=== PATIENT | female | born 1950 | race Caucasian/White ===

== ENCOUNTER 2017-05-28 01:23 | Observation (INO) | payer MEDICARE ==
[2017-05-28] MEDS ORDERED: MORPHINE SULFATE 4 MG INJ IV ONE (01:40)
[2017-05-28] MEDS ORDERED: Zofran 4 MG/2 ML VIAL IV ONE (01:40)
[2017-05-28] MEDS ORDERED: Sodium Chloride 0.9% 1000 ML 1,000 ML IV SCH ×2 (01:45→04:41)
--- NOTE | 2017-05-28 01:47 | ERPHSYRPT ---
- History of Present Illness Time Seen by Provider: 05/28/17 01:43 Source: patient Physician History: 66-year-old white female brought by her with complaint that the patient is complaining of headache and he thinks she might of been confused symptoms since just prior to arrival. Past medical history includes atherosclerotic coronary artery disease high blood pressure Patient denies diabetes Past surgical history includes cholecystectomy, Timing/Duration: today (probably him just prior to arrival) Associated Symptoms: nausea, vomiting, headaches, malaise, No shortness of breath, No heartburn, No diaphoresis, No chills, No chest pain, No fever, No loss of appetite, No rash, No syncope, No seizure Allergies/Adverse Reactions: Sulfa (Sulfonamide Antibiotics) Allergy (Verified 05/28/17 01:52) - Review of Systems Constitutional: No Fever, No Chills Eyes: No Symptoms Ears, Nose, & Throat: No Symptoms Cardiac: No Chest Pain, No Edema, No Syncope Abdominal/Gastrointestinal: Nausea, Vomiting, No Abdominal Pain, No Diarrhea, No Constipation, No Hematemesis, No Hematochezia, No Melena, No Dysphagia, No Appetite Changes Genitourinary Symptoms: No Dysuria Musculoskeletal: No Back Pain, No Neck Pain Skin: No Rash Neurological: Headache Psychological: No Symptoms Endocrine: No Symptoms All Other Systems: Reviewed and Negative - Past Medical History Cardiac History: Coronary Artery Disease, Hypertension - Past Surgical History Gastrointestinal: Cholecystectomy - Nursing Vital Signs Nursing Vital Signs: Initial Vital Signs Temperature 97.7 F 05/28/17 01:24 Pulse Rate 75 05/28/17 01:24 Respiratory Rate 22 05/28/17 01:24 Blood Pressure 205/93 05/28/17 01:24 O2 Sat by Pulse Oximetry 97 05/28/17 01:24 Pain Scale Pain Intensity 1 - Physical Exam General Appearance: other (well-developed white female she is alert oriented 3 somewhat slow to answer questions) Eye Exam: PERRL/EOMI, eyes nml inspection Ears, Nose, Throat Exam: normal ENT inspection, TMs normal, pharynx normal, moist mucous membranes Neck Exam: normal inspection, non-tender, supple, full range of motion Respiratory Exam: normal breath sounds, lungs clear, No respiratory distress Cardiovascular Exam: regular rate/rhythm, normal heart sounds, normal peripheral pulses Gastrointestinal/Abdomen Exam: soft, normal bowel sounds, No tenderness, No mass Back Exam: normal inspection, normal range of motion, No CVA tenderness, No vertebral tenderness Extremity Exam: normal inspection, normal range of motion, pelvis stable Neurologic Exam: alert, oriented x 3, gerontological nurse practitioner II-XII nml as tested, other (patient is able to complete finger to nose full range of motion to all extremitiespatient is somewhat slow to answer questions) Skin Exam: normal color, warm, dry, No rash Lymphatic Exam: No adenopathy SpO2 Interpretation: normal (95%Will with him. Follow-up appointment. Him) - Course Nursing assessment & vital signs reviewed: Yes EKG Interpreted by Me: RATE (60 bpm), Sinus Rhythm, Left [place] Deviation, Other ( EKG: Sinus rhythm, 60 bpm, left axis deviation, no acute ST or T wave changes noted) - CT Exams Head CT Interpretation: Tele-radiologist Report (no acute findings) Ordered Tests: Active Orders 24 hr Category Date Time Status Accucheck STAT Care 05/28/17 01:41 Active Sow Farm Technician STAT Care 05/28/17 01:41 Active EKG-ER Only STAT Care 05/28/17 01:42 Active IV Insertion STAT Care 05/28/17 01:40 Active HEAD WITHOUT CONTRAST [CT] Stat Exams 05/28/17 01:41 Taken ACETAMINOPHEN Stat Lab 05/28/17 01:45 Completed AMYLASE Stat Lab 05/28/17 01:45 Completed CBC W DIFF Stat Lab 05/28/17 01:45 Completed CMP Stat Lab 05/28/17 01:45 Completed ETHYL ALCOHOL Stat Lab 05/28/17 01:45 Completed SALICYLATE Stat Lab 05/28/17 01:45 Completed UA W/RFX UR CULTURE Stat Lab 05/28/17 03:00 Completed Urine Triage Profile Stat Lab 05/28/17 03:00 Completed Medication Summary Generic Name Dose Route Start Last Admin Trade Name Freq PRN Reason Stop Dose Admin Sodium Chloride 1,000 mls @ 100 mls/hr 05/28/17 01:45 05/28/17 01:53 Sodium Chloride 0.9% 1000 Ml IV 06/27/17 01:44 100 mls/hr .Q10H RACHELL Administration Discontinued Medications Generic Name Dose Route Start Last Admin Trade Name Freq PRN Reason Stop Dose Admin Morphine Sulfate 4 mg 05/28/17 01:40 05/28/17 01:52 Morphine Sulfate 4 Mg Inj IV 05/28/17 01:41 4 mg STAT ONE Administration Morphine Sulfate Confirm 05/28/17 01:50 Morphine Sulfate 4 Mg Inj Administered 05/28/17 01:51 Dose 4 mg .ROUTE .STK-MED ONE Ondansetron HCl 4 mg 05/28/17 01:40 05/28/17 01:52 Zofran 4 Mg/2 Ml Vial IV 05/28/17 01:41 4 mg STAT ONE Administration Ondansetron HCl Confirm 05/28/17 01:50 Zofran 4 Mg/2 Ml Vial Administered 05/28/17 01:51 Dose 4 mg .ROUTE .STK-MED ONE Promethazine HCl 12.5 mg 05/28/17 02:42 05/28/17 02:49 Phenergan 25 Mg Inj IV 05/28/17 02:43 12.5 mg STAT ONE Administration Promethazine HCl Confirm 05/28/17 02:46 Phenergan 25 Mg Inj Administered 05/28/17 02:47 Dose 25 mg .ROUTE .STK-MED ONE Lab/Rad Data: Laboratory Result Diagrams 05/28/17 01:45 05/28/17 01:45 Laboratory Results 05/28/17 05/28/17 05/28/17 Range/Units 03:00 03:00 01:45 WBC (4.0-10.5) K/mm3 RBC (4.1-5.4) M/mm3 Hgb (12.0-16.0) gm/dl Hct (35-47) % MCV (78-100) fl MCH (26-32) pg MCHC (32-36) g/dl RDW (11.5-14.0) % Plt Count (150-450) K/mm3 MPV (6-9.5) fl Gran % (36.0-66.0) % Eos # (Auto) (0-0.5) Lymphocytes % (24.0-44.0) % Monocytes % (0.0-12.0) % Eosinophils % (0.00-5.0) % Basophils % (0.0-0.4) % Absolute Granulocytes (1.4-6.9) Basophils # (0-0.4) Sodium (137-145) mmol/L Potassium (3.5-5.1) mmol/L Chloride (98-107) mmol/L Carbon Dioxide (22-30) mmol/L Anion Gap (5-15) MEQ/L BUN (7-17) mg/dL Creatinine (0.52-1.04) mg/dL Estimated GFR ML/MIN Glucose (74-106) mg/dL Calcium (8.4-10.2) mg/dL Total Bilirubin (0.2-1.3) mg/dL AST (14-36) U/L ALT (0-35) U/L Alkaline Phosphatase (38-126) U/L Serum Total Protein (6.3-8.2) g/dL Albumin (3.5-5.0) g/dL Amylase 59 (30-110) U/L Ur Collection Type CATH Urine Color YELLOW (YELLOW) Urine Appearance CLEAR (CLEAR) Urine pH 8.0 (5-6) Ur Specific [place] 1.005 (1.005-1.025) Urine Protein NEGATIVE (Negative) Urine Ketones NEGATIVE (NEGATIVE) Urine Blood NEGATIVE (0-5) Vu/ul Urine Nitrite NEGATIVE (NEGATIVE) Urine Bilirubin NEGATIVE (NEGATIVE) Urine Urobilinogen NORMAL (0-1) mg/dL Ur Leukocyte Esterase NEGATIVE (NEGATIVE) Urine Culture Reflexed NO (NO) Urine Glucose NEGATIVE (NEGATIVE) mg/dL Salicylates < 1.0 L (2-20) mg/dL Urine Opiates Level POSITIVE (NEGATIVE) Ur Methadone NEGATIVE (NEGATIVE) Acetaminophen < 10 L (10-30) ug/ml Urine Barbiturates NEGATIVE (NEGATIVE) Ur Phencyclidine (PCP) NEGATIVE (NEGATIVE) Urine Amphetamine NEGATIVE (NEGATIVE) U Benzodiazepine Level NEGATIVE (NEGATIVE) Urine Cocaine NEGATIVE (NEGATIVE) Urine Marijuana (THC) NEGATIVE (NEGATIVE) Ethyl Alcohol < 10 H (0-9) mg/dL Specimen Received 05/28/17 0300 05/28/17 05/28/17 Range/Units 01:45 01:45 WBC 9.4 (4.0-10.5) K/mm3 RBC 4.87 (4.1-5.4) M/mm3 Hgb 13.8 (12.0-16.0) gm/dl Hct 42.0 (35-47) % MCV 86.2 (78-100) fl MCH 28.3 (26-32) pg MCHC 32.9 (32-36) g/dl RDW 14.6 H (11.5-14.0) % Plt Count 281 (150-450) K/mm3 MPV 9.4 (6-9.5) fl Gran % 58.8 (36.0-66.0) % Eos # (Auto) 0.54 H (0-0.5) Lymphocytes % 25.8 (24.0-44.0) % Monocytes % 9.4 (0.0-12.0) % Eosinophils % 5.7 H (0.00-5.0) % Basophils % 0.3 (0.0-0.4) % Absolute Granulocytes 5.53 (1.4-6.9) Basophils # 0.03 (0-0.4) Sodium 141 (137-145) mmol/L Potassium 3.6 (3.5-5.1) mmol/L Chloride 103 (98-107) mmol/L Carbon Dioxide 29 (22-30) mmol/L Anion Gap 13.1 (5-15) MEQ/L BUN 10 (7-17) mg/dL Creatinine 0.65 (0.52-1.04) mg/dL Estimated GFR > 60 ML/MIN Glucose 117 H (74-106) mg/dL Calcium 9.4 (8.4-10.2) mg/dL Total Bilirubin 0.80 (0.2-1.3) mg/dL AST 18 (14-36) U/L ALT 20 (0-35) U/L Alkaline Phosphatase 121 (38-126) U/L Serum Total Protein 7.0 (6.3-8.2) g/dL Albumin 3.9 (3.5-5.0) g/dL Amylase (30-110) U/L Ur Collection Type Urine Color (YELLOW) Urine Appearance (CLEAR) Urine pH (5-6) Ur Specific [place] (1.005-1.025) Urine Protein (Negative) Urine Ketones (NEGATIVE) Urine Blood (0-5) Vu/ul Urine Nitrite (NEGATIVE) Urine Bilirubin (NEGATIVE) Urine Urobilinogen (0-1) mg/dL Ur Leukocyte Esterase (NEGATIVE) Urine Culture Reflexed (NO) Urine Glucose (NEGATIVE) mg/dL Salicylates (2-20) mg/dL Urine Opiates Level (NEGATIVE) Ur Methadone (NEGATIVE) Acetaminophen (10-30) ug/ml Urine Barbiturates (NEGATIVE) Ur Phencyclidine (PCP) (NEGATIVE) Urine Amphetamine (NEGATIVE) U Benzodiazepine Level (NEGATIVE) Urine Cocaine (NEGATIVE) Urine Marijuana (THC) (NEGATIVE) Ethyl Alcohol (0-9) mg/dL Specimen Received - Progress Progress: improved Progress Note: 05/28/17 04:00 66-year-old white female brought by her with complaint of headache vomiting he felt like she was confused This was a sudden onset just prior to arrival on arrival patient was alert oriented. Had normal CT of the head she was noted to have elevated blood pressure. She was noted to have vomiting and nausea. 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 again was normal, EKG remarkable for sinus rhythm 66 bpm left axis deviation no acute ST or T wave changes were noted chemistry was essentially normal with the exception of a glucose of 117 CBC normal white count of 9.5 hemoglobin 13.8 hematocrit 42 platelets 281 patient's urine drug screen was remarkable for opiates patient with a normal urine Patient was given morphine 4 mg IV also given Zofran 4 mg IV and started on normal saline 100 mL per hour shortly thereafter she a began to have increasing retching, she stated that she was having vertigo. The patient's blood pressure actually had improved. Patient was given Phenergan 12.5 mg IV. She is rechecked she states she still has some dizziness her headache is improved and she is no longer vomiting. 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 I've discussed the case with Dr. Rincon will give patient aspirin 162 mg orally. Will plan to place on observation diagnosis headache, vomiting, vertigo,. Will continue IV normal saline continue morphine as needed for headache and continue Zofran. - Departure Time of Disposition: 03:59 Departure Disposition: Observation Clinical Impression: Vertigo Headache Qualifiers: Headache type: unspecified Headache chronicity pattern: acute headache Intractability: not intractable Qualified Code(s): R51 - Headache Vomiting Qualifiers: Vomiting type: unspecified Vomiting Intractability: non-intractable Nausea presence: with nausea Qualified Code(s): R11.2 - Nausea with vomiting, unspecified Condition: Fair Critical Care Time: No Referrals: ANALIA MONREAL [Primary Care Provider] -
[2017-05-28 01:49] LABS: BASOPHIL % 0.3 % (0.0-0.4); Basophil (Absolute #) 0.03 (0-0.4); Eosinophil % 5.7 % (0.00-5.0); Eosinophil (Absolute #) 0.54 (0-0.5); Granulocyte Absolute (ANC) 5.53 (1.4-6.9); Granulocytes % 58.8 % (36.0-66.0); Hemoglobin 13.8 gm/dl (12.0-16.0); Lymphocyte (Absolute #) 2.43 (1.0-4.6); Lymphocytes % 25.8 % (24.0-44.0); Mean Cell Volume 86.2 fl (78-100); Mean Corpuscular Hemoglobin 28.3 pg (26-32); Mean Corpuscular Hgb Concent. 32.9 g/dl (32-36); Mean Platelet Volume 9.4 fl (6-9.5); Monocyte (Absolute #) 0.88 (0.0-1.3); Monocytes % 9.4 % (0.0-12.0); Platelet Count 281 K/mm3 (150-450); Red Blood Count 4.87 M/mm3 (4.1-5.4); Red Cell Distribution Width 14.6 % (11.5-14.0); White Blood Count 9.4 K/mm3 (4.0-10.5)
[2017-05-28] MEDS ORDERED: Sodium Chloride 0.9% 1000 ML 1,000 ML ONE (01:50)
[2017-05-28] MEDS ORDERED: MORPHINE SULFATE 4 MG INJ ONE (01:50)
[2017-05-28] MEDS ORDERED: Zofran 4 MG/2 ML VIAL ONE (01:50)
[2017-05-28 02:05] LABS: ALBUMIN 3.9 g/dL (3.5-5.0); ALKALINE PHOSPHATASE 121 U/L (38-126); ANION GAP 13.1 MEQ/L (5-15); BLOOD UREA NITROGEN 10 mg/dL (7-17); CHLORIDE 103 mmol/L (98-107); Calcium 9.4 mg/dL (8.4-10.2); Carbon Dioxide 29 mmol/L (22-30); Creatinine 1 0.65 mg/dL (0.52-1.04); Glucose 117 mg/dL (74-106); Potassium 3.6 mmol/L (3.5-5.1); SGOT/AST 18 U/L (14-36); SGPT/ALT 20 U/L (0-35); SODIUM 141 mmol/L (137-145)
[2017-05-28 02:06] LABS: AMYLASE 59 U/L (30-110)
[2017-05-28 02:09] LABS: ACETAMINOPHEN < 10 ug/ml (10-30); ETHYL ALCOHOL < 10 mg/dL (0-9); SALICYLATE < 1.0 mg/dL (2-20)
[2017-05-28] MEDS ORDERED: Phenergan 25 MG INJ IV ONE (02:42)
[2017-05-28] MEDS ORDERED: Phenergan 25 MG INJ ONE (02:46)
[2017-05-28 03:33] LABS: Appearance CLEAR (CLEAR); Bilirubin NEGATIVE (NEGATIVE); Blood NEGATIVE Ery/ul (0-5); Glucose NEGATIVE (NEGATIVE); Ketones NEGATIVE (NEGATIVE); Leukocyte Esterase NEGATIVE (NEGATIVE); Nitrite NEGATIVE (NEGATIVE); Protein,Urine Dip NEGATIVE (Negative); Specific Gravity 1.005 (1.005-1.025); Urobilinogen NORMAL mg/dL (0-1)
[2017-05-28 03:49] LABS: Amphetamine,Urine NEGATIVE (NEGATIVE); Barbiturate,Urine NEGATIVE (NEGATIVE); Benzodiazepine,Urine NEGATIVE (NEGATIVE); Cocaine,Urine NEGATIVE (NEGATIVE); Methadone,Urine NEGATIVE (NEGATIVE); Opiate,Urine POSITIVE (NEGATIVE); PCP,Urine NEGATIVE (NEGATIVE); THC,Urine NEGATIVE (NEGATIVE)
[2017-05-28] MEDS ORDERED: BABY ASPIRIN 81 MG CHEW PO ONE (04:00)
[2017-05-28] MEDS ORDERED: BABY ASPIRIN 81 MG CHEW ONE (04:10)
[2017-05-28] MEDS ORDERED: MORPHINE SULFATE 4 MG INJ IV PRN (04:41)
[2017-05-28] MEDS ORDERED: Zofran 4 MG/2 ML VIAL IV PRN (04:41)
[2017-05-28] MEDS ORDERED: LIPITOR 40MG PO ONE (07:25)
--- NOTE | 2017-05-28 07:32 | PCM.HP ---
History of Present Illness - Chief Complaint Chief Complaint: dysarthria, headache, vomiting, vertigo Date: 05/28/17 History of Present Illness: is a 66 year old female. who was feeling herself yesterday until eating dinner around 6pm she believes she developed a headache on the left side and was having trouble getting the words she wanted to say out. The speech was reported as slurred as well and she was very dizzy needing assistance to walk from her . SHe did not notice any other focal deficits no blurry vision. No previous stroke. She does have a history of migraines but none in recent years and nothing this series. - Review of Systems Constitutional: No Fever, No Chills Eyes: No Symptoms Ears, Nose, & Throat: No Symptoms Respiratory: No Cough, No Short Of Breath Cardiac: No Chest Pain, No Edema, No Syncope Abdominal/Gastrointestinal: Nausea, No Abdominal Pain, No Vomiting, No Diarrhea Genitourinary Symptoms: No Dysuria Musculoskeletal: No Back Pain, No Neck Pain Skin: No Rash Neurological: Dizziness, Gait Changes, Headache, No Focal Weakness, No Sensory Changes Psychological: No Symptoms Endocrine: No Symptoms Hematologic/Lymphatic: No Symptoms Immunological/Allergic: No Symptoms Medications & Allergies Allergies/Adverse Reactions: Allergies Allergy/AdvReac Type Severity Reaction Status Date / Time Sulfa (Sulfonamide Allergy Verified 05/28/17 01:52 Antibiotics) - Past Medical History Past Medical History: Yes Neurological History: No Pertinent History, Migraines ENT History: No Pertinent History Cardiac History: Coronary Artery Disease, Hypertension Respiratory History: No Pertinent History Endocrine Medical History: No Pertinent History Musculoskelatal History: No Pertinent History GI Medical History: No Pertinent History History: No Pertinent History Pyscho-Social History: No Pertinent History Reproductive Disorders: No Pertinent History Comment: poor historian - Female History Are you now?: No - Past Surgical History Past Surgical History: Yes Neuro Surgical History: No Pertinent History Cardiac History: Cardiac Catheterization, Cardiac Stent Respiratory Surgery: No Pertinent History GI Surgical History: Cholecystectomy Genitourinary Surgical Hx: No Pertinent History Musculskeletal Surgical Hx: No Pertinent History Female Surgical History: Hysterectomy Other Surgical History: slow to wake from anesthesia - Social History Smoking Status: Never smoker Exposure to second hand smoke: Yes Alcohol: None Drug Use: none - Physical Exam Vital Signs: Vital Signs - 24 hr Temp Pulse Resp BP Pulse Ox 05/28/17 05:03 98 F 62 18 151/65 99 05/28/17 04:41 99 05/28/17 03:40 59 L 14 180/73 100 05/28/17 02:57 60 18 176/81 94 L 05/28/17 02:43 90 20 185/107 98 05/28/17 01:24 97.7 F 75 22 205/93 97 Oxygen-Last 24 hours O2 Percentage 2 Liters = 28% General Appearance: no apparent distress, alert Neurologic Exam: alert, oriented x 3, cooperative, normal mood/affect, sensation nml, dysarthria (irma), other (very mild dysarthria her expressive aphasia appears improved she is fully oriented with visual ross intact to confrontation. EMOI, PERRL, fundi poorly visualized, CN II-XII intact, finger to nose very slow on the left heal to arredondo discoordinated on the left more then the right. Strength 5/5 throughout no pronator drift. MSR 2+ throughout no clonus, toes downgoing.), No motor deficits, No sensory deficit Eye Exam: PERRL/EOMI, eyes nml inspection, No scleral icterus, No pale conjunctivae Ears, Nose, Throat Exam: normal ENT inspection, pharynx normal, moist mucous membranes, No TMs normal (Left tm dull in neutral position right ok some tendenress alont the left scm) Neck Exam: normal inspection, non-tender, supple, full range of motion Respiratory Exam: normal breath sounds, lungs clear, No respiratory distress Cardiovascular Exam: regular rate/rhythm, normal heart sounds, normal peripheral pulses Gastrointestinal/Abdomen Exam: soft, normal bowel sounds, No tenderness, No mass Back Exam: normal inspection, normal range of motion, No CVA tenderness, No vertebral tenderness Extremity Exam: normal inspection, normal range of motion, pelvis stable Skin Exam: normal color, warm, dry, No rash Lymphatic Exam: No adenopathy Results - Radiology Impressions Radiology Exams & Impressions: Radiology Procedures Category Date Time Status CAROTID BILATERAL [US] Routine Exams 05/28/17 Ordered ECHO W/2D AND DOPPLER [US] Routine Exams 05/28/17 Ordered MRI BRAIN W/O CONTRAST [MRI] Routine Exams 05/28/17 07:21 Ordered Assessment/Plan (1) Dysarthria Current Visit: Yes Status: Acute Assessment & Plan: suspect tia vs stroke with the bp elevation, sudden onset symptoms, outside of treatment window for tpa and rapidly improving symptoms she is improvign with the nasuea from phenergan she received asa in ed will continue asa and give atorvastin check mri brain as well as carotids echo and telemetry allow for permissive htn for now differential to include early mastoid disease on the left wit her hx of sinusitis, benign vertigo, and vestibular migraine. Code(s): R47.1 - DYSARTHRIA AND ANARTHRIA (2) Aphasia Current Visit: Yes Status: Resolved Code(s): R47.01 - APHASIA (3) Headache Current Visit: Yes Status: Acute Qualifiers: Headache type: unspecified Headache chronicity pattern: acute headache Intractability: not intractable Qualified Code(s): R51 - Headache Code(s): R51 - HEADACHE (4) Vertigo Current Visit: Yes Status: Acute Code(s): R42 - DIZZINESS AND GIDDINESS (5) Essential hypertension Current Visit: Yes Status: Acute Code(s): I10 - ESSENTIAL (PRIMARY) HYPERTENSION (6) GERD (gastroesophageal reflux disease) Current Visit: Yes Status: Acute Code(s): K21.9 - GASTRO-ESOPHAGEAL REFLUX DISEASE WITHOUT ESOPHAGITIS (7) Coronary arteriosclerosis Current Visit: Yes Status: Acute
--- NOTE | 2017-05-28 09:20 | XRAY ---
Indication: Slurred speech and chest discomfort. 2-dimensional sonogram and color Doppler imaging of the carotid arteries of the neck performed. Comparison: None Examination of the right carotid circulation demonstrates very minimal eccentric calcified plaquing at the level of the bulb. No critical stenosis or obstruction. Mid to distal internal carotid artery tortuous. PSV of the CCA is 92 cm/s. PSV of the ICA is 82 cm/s. ICA/CCA is ratio 0.9. Normal antegrade vertebral artery flow. Examination of the left carotid circulation negative for focal arteriosclerotic plaquing, critical stenosis, or obstruction. Distal internal carotid artery slightly tortuous. PSV of the CCA is 103 cm/s. PSV of the ICA is 103 cm/s. ICA/CCA ratio is 1.0. Normal antegrade vertebral artery flow. Impression: Very minimal right carotid bulb plaquing and widely patent left carotid circulation. Velocity measurements and ratios are negative for hemodynamically significant flow-limiting stenosis.
--- NOTE | 2017-05-28 09:43 | XRAY ---
Indication: Headache and hypertension. Multiple contiguous axial images obtained through the head without contrast. Comparison: None Ventriculosulcal pattern appears symmetric. Minimal periventricular patchy hypoattenuations favoring degenerative micro-ischemia. No acute intracranial hemorrhage, abnormal extra-axial fluid collection, or mass effect. Fourth ventricle is midline without hydrocephalus. Miles-white matter differentiation preserved. Bony calvarium intact. Visualized paranasal sinuses and mastoid air cells are clear. Impression: Minimal degenerative micro-ischemia. No acute intracranial abnormalities. Comment: Preliminary interpretation was made by [facility]. No discrepancy. CTDI 68.51
[2017-05-28] MEDS ORDERED: ECOTRIN 81 MG PO SCH (10:00)
[2017-05-28] MEDS ORDERED: ENOXAPARIN SODIUM SQ SCH (10:00)
--- NOTE | 2017-05-28 10:04 | XRAY ---
Indication: Severe left temporal pain. Dizziness, slurred speech, confusion, and bilateral arm weakness. Sagittal, coronal, and axial MRI brain was performed without contrast using T1, T2, FLAIR, diffusion, and ADC sequences. Comparison: None Age-appropriate global atrophy. Several T2 signal intensities seen in the periventricular white matter and lesser degree brainstem favoring degenerative micro-ischemia. No acute intracranial hemorrhage, abnormal extra-axial fluid collection, or mass effect. Diffusion images are negative for restricted signal. Fourth ventricle is midline without hydrocephalus. 7/8 cranial nerve complex bilaterally symmetric. Normal flow void signal within the major intracerebral circulation. Normal-appearing craniocervical junction and sella turcica. Paranasal sinuses are clear. Mild fluid signal in the right mastoid air cells. Impression: 1. Normal aging brain including atrophy and degenerative micro-ischemia as detailed. 2. No acute intracranial abnormalities or evidence for evolving large vessel territorial stroke. 3. Incidental right mastoid air cell fluid signal presumed inflammatory.
[2017-05-28] MEDS ORDERED: NON-FORMULARY ITEM (Promethazine Hcl [Promethazine Hcl] 12.5 MG) PO PRN (12:38)
[2017-05-28] MEDS ORDERED: Nitrostat 0.4 MG Tablet SL PRN (12:38)
[2017-05-28] MEDS ORDERED: Ventolin Hfa MDI IH SCH (12:45)
[2017-05-28] MEDS ORDERED: PHENERGAN 25 MG PO PRN (12:45)
[2017-05-28] MEDS ORDERED: Accupril 10MG Tablet PO SCH (12:45)
[2017-05-28] MEDS ORDERED: Bystolic 5 MG PO SCH (12:45)
[2017-05-28] MEDS ORDERED: NORVASC 5 MG PO SCH (13:00)
[2017-05-28] MEDS ORDERED: Protonix 40MG Tablet PO SCH (13:00)
[2017-05-28] MEDS ORDERED: PROVENTIL COMMON CANISTER IH SCH (15:00)
[2017-05-28 15:56] VITALS: BP 114/57; PULSE 74; O2SAT 97
[2017-05-28] MEDS ORDERED: TYLENOL 325 MG PO PRN (16:04)
--- NOTE | 2017-05-28 17:41 | PCM.DCORD ---
- Discharge Discharge Date: 05/28/17 Disposition: Home, Self-Care Condition: Stable Prescriptions: Continue Quinapril HCl 10 mg [Accupril 10MG Tablet] 10 mg PO DAILY Promethazine HCl 12.5 mg PO QIDPRN PRN PRN Reason: Nausea Aspirin [Muriel Chewable Aspirin] 81 mg PO DAILY Albuterol Sulfate [Proair Hfa] 2 puffs IH Q4H PANTOPRAZOLE 40 mg Tablet [Protonix 40MG Tablet] 40 mg PO DAILY Nitroglycerin 0.4 mg Tablet [Nitrostat 0.4 MG Tablet] 0.4 mg SL UD PRN PRN Reason: Chest Pain Nebivolol HCl 5 MG [Bystolic 5 MG] 5 mg PO DAILY Atorvastatin Calcium 10 mg PO DAILY Alprazolam 0.5 mg PO HS Alendronate Sodium 70 mg [Fosamax 70 MG] 70 mg PO WEEKLY Triamcinolone 0.1% Cream [Kenalog 0.1% Cream 15 gm] 15 gm TP BID Discontinued Amlodipine Besylate 5 mg [Norvasc 5 mg] 5 mg PO DAILY Follow up with: ANALIA MONREAL [Primary Care Provider] - 1 Week
[2017-05-28] MEDS ORDERED: Zocor 10MG PO SCH (22:00)
[2017-05-28] MEDS ORDERED: xanAX 0.5 MG PO SCH (22:00)
[2017-05-29] MEDS ORDERED: NON-FORMULARY ITEM (Atorvastatin Calcium [Atorvastatin Calcium] 10 MG) PO SCH (10:00)
--- NOTE | 2017-05-31 10:13 | ECHO ---
Transthoracic echocardiographic examination and color Doppler was done on 05/28/2017. INDICATION: Palpitations, possible stroke. IMPRESSION: 1) NO REGIONAL WALL MOTION ABNORMALITY. ESTIMATED GLOBAL LEFT VENTRICULAR EJECTION FRACTION 60%. 2) LEFT VENTRICULAR HYPERTROPHY. 3) TRACE MITRAL REGURGITATION. 4) TRACE TRICUSPID REGURGITATION. 5) LEFT VENTRICULAR DIASTOLIC DYSFUNCTION. The left ventricle is visualized and demonstrated adequate motion of all the segments. Estimated global left ventricular ejection fraction of about 60%. There is mild left ventricular hypertrophy. The mitral valve is seen and this opens adequately. There is trace mitral regurgitation. Left atrium is normal. The aortic valve opens adequately. The right side chambers are normal. There is trace tricuspid regurgitation. The tissue Doppler study of the lateral mitral annulus suggestive of left ventricular diastolic dysfunction. There is no significant gradient across the left ventricular outflow tract.
== END 2017-05-28 18:15 | disposition home or self-care (01) ==
LOC: ED 01:23 → MED SURG 04:40
PROVIDERS: ADMIT Family Medicine; ATTEND Family Medicine
DX: R47.1 Dysarthria and anarthria (principal); R47.01 Aphasia; R51 Headache; R42 Dizziness and giddiness; I10 Essential (primary) hypertension; K21.9 Gastro-esophageal reflux disease without esophagitis; I25.10 Atherosclerotic heart disease of native coronary artery without angina pectoris; Z79.899 Other long term (current) drug therapy
CPT/HCPCS: 36000; 36415; 70450; 70551; 80053; 80307; 81002; 82150; 82962; 85025; 93005; 93041; 93268; 93306; 93880; 96360; 96361; 96365; 96374; 96375; 99285; G0378; G0480; G0481; J1650; J2270; J2405; J2550; P9612; A9270-GY

== ENCOUNTER 2018-11-16 07:15 | Emergency (ER) | payer MEDICARE ==
[2018-11-16] MEDS ORDERED: Nitrostat 0.4 MG (ED) SL ONE ×2 (07:23→07:38)
[2018-11-16] MEDS ORDERED: BABY ASPIRIN 81 MG CHEW PO ONE (07:23)
[2018-11-16] MEDS ORDERED: Pepcid 20 MG VIAL IV ONE ×2 (07:23→07:38)
[2018-11-16] MEDS ORDERED: Zofran 4 MG/2 ML VIAL IV ONE (07:23)
[2018-11-16] MEDS ORDERED: Sodium Chloride 0.9% 1000 ML 1,000 ML IV SCH (07:30)
--- NOTE | 2018-11-16 07:37 | ERPHSYRPT ---
- History of Present Illness Time Seen by Provider: 11/16/18 07:15 Historian: patient Exam Limitations: no limitations Timing/Duration: today, hour(s) (2 hours ago; ), other (pain initially began 2 days ago with exertion, than resolved on its own; patient than had pain in the evening of 11/15/2018 intermittently throughout the evening, than became persistent at 05:30 upon awaking on 11/16/2018) Activities at Onset: none Quality: pressure Location: substernal Chest Pain Radiation: no radiation Severity of Pain-Max: severe Severity of Pain-Current: severe Modifying Factors: Improves With: nothing, exertion (2 days ago it occured with exertion; the evening ). Worsens With: breathing, coughing, eating, lying down Associated Symptoms: nausea, No vomiting, No palpitations, No heartburn, No abdominal pain, No shortness of breath, No cough, No hurts to breathe, No diaphoresis, No chills, No fever, No fatigue, No weakness, No swelling/lump in chest, No syncope, No rash, No headache, No dizziness, No edema, No back pain Prior Chest Pain/Cardiac Workup: cardiac cath (over three years ago) Nitro Today/Relief: no nitro taken today Aspirin Treatment Today: no aspirin today Allergies/Adverse Reactions: Sulfa (Sulfonamide Antibiotics) Allergy (Verified 11/16/18 07:31) Home Medications: Albuterol Sulfate [Proair Hfa] 2 puffs IH Q4H 05/28/17 [History] Alprazolam 0.5 mg PO HS 05/28/17 [History] Aspirin [Muriel Chewable Aspirin] 81 mg PO DAILY 05/28/17 [History] Atorvastatin Calcium 10 mg PO DAILY 05/28/17 [History] Nebivolol HCl 5 MG [Bystolic 5 MG] 5 mg PO DAILY 05/28/17 [History] PANTOPRAZOLE 40 mg Tablet [Protonix 40MG Tablet] 40 mg PO DAILY 05/28/17 [ History] Quinapril HCl 10 mg [Accupril 10MG Tablet] 10 mg PO DAILY 05/28/17 [History] Amlodipine Besylate 5 mg PO DAILY 11/16/18 [History] Calcium Carbonate [Tums] 300 mg PO TID 11/16/18 [History] Cholecalciferol (Vitamin D3) [Vitamin D3] 1,000 unit PO DAILY 11/16/18 [History] Cyanocobalamin (Vitamin B-12) [Vitamin B-12] 1,000 mcg PO DAILY 11/16/18 [ History] Hx Tetanus, Diphtheria Vaccination/Date Given: No Hx Influenza Vaccination/Date Given: Yes Hx Pneumococcal Vaccination/Date Given: Yes - Review of Systems Constitutional: No Fever, No Chills Eyes: No Symptoms, No Eye Pain, No Vision Changes Ears, Nose, & Throat: No Symptoms, No Throat Pain, No Painful Swallowing Respiratory: No Cough, No Dyspnea Cardiac: Chest Pain, No Edema, No Syncope Abdominal/Gastrointestinal: Nausea, No Abdominal Pain, No Vomiting, No Diarrhea , No Hematemesis, No Hematochezia, No Melena Genitourinary Symptoms: No Dysuria, No Hematuria, No Flank Pain Musculoskeletal: No Back Pain, No Neck Pain Skin: No Rash Neurological: No Dizziness, No Focal Weakness, No Sensory Changes Psychological: No Symptoms Endocrine: No Symptoms Hematologic/Lymphatic: No Easy Bleeding, No Easy Bruising All Other Systems: Reviewed and Negative - Past Medical History Pertinent Past Medical History: Yes Neurological History: No Pertinent History, Migraines ENT History: No Pertinent History Cardiac History: Coronary Artery Disease, Hypertension Respiratory History: No Pertinent History Endocrine Medical History: No Pertinent History Musculoskeletal History: No Pertinent History GI Medical History: No Pertinent History History: No Pertinent History Psycho-Social History: No Pertinent History Female Reproductive Disorders: No Pertinent History Other Medical History: poor historian - Past Surgical History Past Surgical History: Yes Neuro Surgical History: No Pertinent History Cardiac: Cardiac Catheterization, Cardiac Stent Respiratory: No Pertinent History Gastrointestinal: Cholecystectomy Genitourinary: No Pertinent History Musculoskeletal: No Pertinent History Female Surgical History: Hysterectomy Other Surgical History: slow to wake from anesthesia - Social History Smoking Status: Never smoker Exposure to second hand smoke: Yes Drug Use: none - Nursing Vital Signs Nursing Vital Signs: Initial Vital Signs Temperature 97.7 F 11/16/18 07:16 Pulse Rate 87 11/16/18 07:16 Respiratory Rate 16 11/16/18 07:16 Blood Pressure 163/101 11/16/18 07:16 O2 Sat by Pulse Oximetry 99 11/16/18 07:16 Pain Scale Pain Intensity 5 - Physical Exam General Appearance: no apparent distress, alert Eye Exam: PERRL/EOMI, eyes nml inspection Ears, Nose, Throat Exam: normal ENT inspection, moist mucous membranes Neck Exam: normal inspection, non-tender, supple, full range of motion Respiratory Exam: normal breath sounds, lungs clear, No respiratory distress Cardiovascular Exam: regular rate/rhythm, normal heart sounds, normal peripheral pulses, capillary refill <2 sec, No murmur, No friction rub Gastrointestinal/Abdomen Exam: soft, No tenderness, No mass Back Exam: normal inspection, No CVA tenderness, No vertebral tenderness Extremity Exam: normal inspection, normal range of motion Neurologic Exam: alert, oriented x 3, cooperative, 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 as tested, normal mood/affect, sensation nml, No motor deficits Skin Exam: normal color, warm, dry, No jaundice, No cyanosis SpO2 Interpretation: normal SpO2: 99 O2 Delivery: Room Air - Course Nursing assessment & vital signs reviewed: Yes EKG Interpreted by Me: RATE (79), Sinus Rhythm, LAFB (no change from EKG from 05/08/2017), NORMAL INTERVALS, NORMAL QRS, NORMAL ST-T, Other (no changes from EKG from 05/08/2017) - Radiology Exams Chest X-ray Interpretation: Interpreted by me, Reviewed by me, No Pneumonia, No Pneumothorax, Nml Heart Size, No Infiltrates, Nml Mediastinum, Other (confirmed by Radiologist for no acute cardiopulmonary process and unchanged from 09/17/2015 ) Ordered Tests: Active Orders 24 hr Category Date Time Status Web Portal Developer STAT Care 11/16/18 07:23 Active EKG-ER Only STAT Care 11/16/18 07:23 Active IV Insertion STAT Care 11/16/18 07:23 Active Pulse Oximetry (ED) STAT Care 11/16/18 07:23 Active CHEST 1 VIEW (PORTABLE) Stat Exams 11/16/18 07:23 Completed CBC W DIFF Stat Lab 11/16/18 07:50 Completed CK-Creatinine Phosphokinase Stat Lab 11/16/18 07:50 Completed CMP Stat Lab 11/16/18 07:50 Completed LIPASE Stat Lab 11/16/18 07:50 Completed NT PRO BNP Stat Lab 11/16/18 07:50 Completed PROTIME WITH INR Stat Lab 11/16/18 07:50 Completed PTT Stat Lab 11/16/18 07:50 Completed TROPONIN Q3H Lab 11/16/18 07:50 Completed TROPONIN Q3H Lab 11/16/18 10:30 Ordered TROPONIN Q3H Lab 11/16/18 13:30 Ordered TROPONIN Q3H Lab 11/16/18 16:30 Ordered TROPONIN Q3H Lab 11/16/18 19:30 Ordered Medication Summary Generic Name Dose Route Start Last Admin Trade Name Sendy PRN Reason Stop Dose Admin Sodium Chloride 1,000 mls @ 100 mls/hr 11/16/18 07:30 11/16/18 07:43 Sodium Chloride 0.9% 1000 Ml IV 12/16/18 07:29 100 mls/hr .Q10H RACHELL Administration Discontinued Medications Generic Name Dose Route Start Last Admin Trade Name Sendy PRN Reason Stop Dose Admin Aspirin 324 mg 11/16/18 07:23 11/16/18 07:42 Baby Aspirin 81 Mg Chew PO 11/16/18 07:24 324 mg STAT ONE Administration Aspirin Confirm 11/16/18 07:38 Baby Aspirin 81 Mg Chew Administered 11/16/18 07:39 Dose 324 mg .ROUTE .STK-MED ONE Famotidine 20 mg 11/16/18 07:23 11/16/18 07:44 Pepcid 20 Mg Vial IV 11/16/18 07:24 20 mg STAT ONE Administration Famotidine Confirm 11/16/18 07:38 Pepcid 20 Mg Vial Administered 11/16/18 07:39 Dose 20 mg IV .STK-MED ONE Metoprolol Tartrate 5 mg 11/16/18 07:59 11/16/18 08:05 Lopressor 5 Mg/5 Ml Injection IV 11/16/18 08:00 5 mg STAT ONE Administration Metoprolol Tartrate Confirm 11/16/18 08:03 Lopressor 5 Mg/5 Ml Injection Administered 11/16/18 08:04 Dose 5 mg IV .STK-MED ONE Nitroglycerin 0.4 mg 11/16/18 07:23 11/16/18 07:41 Nitrostat 0.4 Mg (Ed) SL 11/16/18 07:24 Not Given STAT ONE Nitroglycerin Confirm 11/16/18 07:38 Nitrostat 0.4 Mg (Ed) Administered 11/16/18 07:39 Dose 0.4 mg SL .STK-MED ONE Ondansetron HCl 4 mg 11/16/18 07:23 11/16/18 07:47 Zofran 4 Mg/2 Ml Vial IV 11/16/18 07:24 4 mg STAT ONE Administration Ondansetron HCl Confirm 11/16/18 07:45 Zofran 4 Mg/2 Ml Vial Administered 11/16/18 07:46 Dose 4 mg .ROUTE .STK-MED ONE Lab/Rad Data: Laboratory Result Diagrams 11/16/18 07:50 11/16/18 07:50 Laboratory Results 11/16/18 11/16/18 11/16/18 Range/Units 07:50 07:50 07:50 WBC (4.0-10.5) K/mm3 RBC (4.1-5.4) M/mm3 Hgb (12.0-16.0) gm/dl Hct (35-47) % MCV (78-100) fl MCH (26-32) pg MCHC (32-36) g/dl RDW (11.5-14.0) % Plt Count (150-450) K/mm3 MPV (6-9.5) fl Gran % (36.0-66.0) % Eos # (Auto) (0-0.5) Absolute Lymphs (auto) (1.0-4.6) Absolute Monos (auto) (0.0-1.3) Lymphocytes % (24.0-44.0) % Monocytes % (0.0-12.0) % Eosinophils % (0.00-5.0) % Basophils % (0.0-0.4) % Absolute Granulocytes (1.4-6.9) Basophils # (0-0.4) PT 12.3 (9.95-12.35) SECONDS INR 1.09 (0.8-3.0) APTT 30.6 (25.3-37.0) SECONDS Sodium 141 (137-145) mmol/L Potassium 4.1 (3.5-5.1) mmol/L Chloride 105 (98-107) mmol/L Carbon Dioxide 29 (22-30) mmol/L Anion Gap 10.8 (5-15) MEQ/L BUN 9 (7-17) mg/dL Creatinine 0.60 (0.52-1.04) mg/dL Estimated GFR > 60.0 ML/MIN Glucose 107 H (74-106) mg/dL Calcium 9.5 (8.4-10.2) mg/dL Total Bilirubin 1.00 (0.2-1.3) mg/dL AST 22 (14-36) U/L ALT 18 (0-35) U/L Alkaline Phosphatase 126 (38-126) U/L Creatine Kinase 46 (30-135) U/L Troponin I < 0.012 (0.000-0.034) ng/mL NT-Pro-B Natriuret Pep 92.1 (0-900) pg/mL Serum Total Protein 7.4 (6.3-8.2) g/dL Albumin 4.1 (3.5-5.0) g/dL Lipase 41 (23-300) U/L 11/16/18 Range/Units 07:50 WBC 8.6 (4.0-10.5) K/mm3 RBC 4.95 (4.1-5.4) M/mm3 Hgb 14.7 (12.0-16.0) gm/dl Hct 43.9 (35-47) % MCV 88.7 (78-100) fl MCH 29.7 (26-32) pg MCHC 33.5 (32-36) g/dl RDW 13.8 (11.5-14.0) % Plt Count 251 (150-450) K/mm3 MPV 9.3 (6-9.5) fl Gran % 59.6 (36.0-66.0) % Eos # (Auto) 0.44 (0-0.5) Absolute Lymphs (auto) 2.24 (1.0-4.6) Absolute Monos (auto) 0.76 (0.0-1.3) Lymphocytes % 26.0 (24.0-44.0) % Monocytes % 8.8 (0.0-12.0) % Eosinophils % 5.1 H (0.00-5.0) % Basophils % 0.5 (0.0-0.4) % Absolute Granulocytes 5.12 (1.4-6.9) Basophils # 0.04 (0-0.4) PT (9.95-12.35) SECONDS INR (0.8-3.0) APTT (25.3-37.0) SECONDS Sodium (137-145) mmol/L Potassium (3.5-5.1) mmol/L Chloride (98-107) mmol/L Carbon Dioxide (22-30) mmol/L Anion Gap (5-15) MEQ/L BUN (7-17) mg/dL Creatinine (0.52-1.04) mg/dL Estimated GFR ML/MIN Glucose (74-106) mg/dL Calcium (8.4-10.2) mg/dL Total Bilirubin (0.2-1.3) mg/dL AST (14-36) U/L ALT (0-35) U/L Alkaline Phosphatase (38-126) U/L Creatine Kinase (30-135) U/L Troponin I (0.000-0.034) ng/mL NT-Pro-B Natriuret Pep (0-900) pg/mL Serum Total Protein (6.3-8.2) g/dL Albumin (3.5-5.0) g/dL Lipase (23-300) U/L - Progress Progress: improved Air Movement: good Progress Note: 11/16/18 07:59 the patient declined nitroglycerin as it makes her feel like she is on fire. He states her chest pain is better at this point. 11/16/18 08:48 Patient feeling better. Patient's blood pressure has improved. 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 HEART score: 5, High Risk for MACE in next 6 weeks 11/16/18 09:01 Dr Newman accepted the patient for transfer to [facility] through their auto-accept program Blood Culture(s) Obtained: No Antibiotics given: No Discussed with .: Other (Dr Newman accepted the patient for transfer to [facility]) Will see patient in: ED Counseled pt/family regarding: lab results, diagnosis, need for follow-up, rad results - Departure Departure Disposition: Transfer ([facility] in [place], [place]) Clinical Impression: Coronary arteriosclerosis, Essential hypertension, Acute chest pain Condition: Fair Critical Care Time: No Referrals: VALERIE HOYT, [Primary Care Provider] -
[2018-11-16] MEDS ORDERED: BABY ASPIRIN 81 MG CHEW ONE (07:38)
[2018-11-16] MEDS ORDERED: Sodium Chloride 0.9% 1000 ML 1,000 ML ONE (07:39)
[2018-11-16] MEDS ORDERED: Zofran 4 MG/2 ML VIAL ONE (07:45)
[2018-11-16] MEDS ORDERED: LOPRESSOR 5 MG/5 ML INJECTION IV ONE ×2 (07:59→08:03)
[2018-11-16 08:00] LABS: BASOPHIL % 0.5 % (0.0-0.4); Basophil (Absolute #) 0.04 (0-0.4); Eosinophil % 5.1 % (0.00-5.0); Eosinophil (Absolute #) 0.44 (0-0.5); Granulocyte Absolute (ANC) 5.12 (1.4-6.9); Granulocytes % 59.6 % (36.0-66.0); Hematocrit 43.9 % (35-47); Hemoglobin 14.7 gm/dl (12.0-16.0); Lymphocyte (Absolute #) 2.24 (1.0-4.6); Mean Cell Volume 88.7 fl (78-100); Mean Corpuscular Hemoglobin 29.7 pg (26-32); Mean Corpuscular Hgb Concent. 33.5 g/dl (32-36); Mean Platelet Volume 9.3 fl (6-9.5); Monocyte (Absolute #) 0.76 (0.0-1.3); Monocytes % 8.8 % (0.0-12.0); Platelet Count 251 K/mm3 (150-450); Red Blood Count 4.95 M/mm3 (4.1-5.4); Red Cell Distribution Width 13.8 % (11.5-14.0); White Blood Count 8.6 K/mm3 (4.0-10.5)
[2018-11-16 08:07] LABS: INR 1.09 (0.8-3.0); PROTIME 12.3 SECONDS (9.95-12.35)
[2018-11-16 08:09] LABS: PTT 30.6 SECONDS (25.3-37.0)
--- NOTE | 2018-11-16 08:29 | XRAY ---
Exam: AP upright portable chest film from 11/16/2018. Comparison: Two-view chest from 09/17/2015. Indication: Patient is nonsmoker, but exposed to secondhand smoke. Mid the lower chest pain, has coronary artery stent. Findings: The film was obtained in a lordotic projection. The transverse heart size is normal. Vascular calcification within the aortic arch and mild tortuosity of the descending thoracic aorta are seen. I believe there is a tiny calcified granuloma within the left midlung field representing no change. The teena and mediastinal structures appear unremarkable. There is a tiny calcified granuloma within the right lung apex. Minimal transverse linear plate atelectasis or fibrosis is seen at the lateral left lung base. No air space infiltrates, vascular congestion, pneumothorax, or pleural fluid is seen. No acute osseous process is seen. Impression: 1. No CHF/heart failure, pulmonary edema, or focal pneumonia is seen. No other acute cardiopulmonary disease is seen. The exam appears essentially unchanged from 09/17/2015.
[2018-11-16 08:35] LABS: ALBUMIN 4.1 g/dL (3.5-5.0); ALKALINE PHOSPHATASE 126 U/L (38-126); ANION GAP 10.8 MEQ/L (5-15); BLOOD UREA NITROGEN 9 mg/dL (7-17); CHLORIDE 105 mmol/L (98-107); CK-Creatinine Phosphokinase 46 U/L (30-135); Calcium 9.5 mg/dL (8.4-10.2); Carbon Dioxide 29 mmol/L (22-30); Glucose 107 mg/dL (74-106); LIPASE 41 U/L (23-300); NT PRO BNP 92.1 pg/mL (0-900); Potassium 4.1 mmol/L (3.5-5.1); SGOT/AST 22 U/L (14-36); SGPT/ALT 18 U/L (0-35); SODIUM 141 mmol/L (137-145); Total Protein 7.4 g/dL (6.3-8.2)
[2018-11-16 09:48] VITALS: BP 148/70; PULSE 75; O2SAT 95
== END 2018-11-16 09:56 | disposition short-term general hospital (02) ==
LOC: ED 07:15
DX: I25.10 Atherosclerotic heart disease of native coronary artery without angina pectoris (principal); I10 Essential (primary) hypertension; R07.9 Chest pain, unspecified
CPT/HCPCS: 36000; 36415; 71045; 80053; 82550; 83690; 83880; 84484; 85025; 85610; 85730; 93005; 93041; 94760; 96360; 96374; 96375; 99285; J2405; A9270-GY

== ENCOUNTER 2019-06-23 12:16 | Emergency (ER) | payer MEDICARE ==
--- NOTE | 2019-06-23 12:40 | ERPHSYRPT ---
- History of Present Illness Time Seen by Provider: 06/23/19 12:40 Source: patient Patient Subjective Stated Complaint: Pt states "Yesterday around noon I had this odd tingling on my face and today this morning around 8 am my head really started to hurt and I was having a hard time using my hand." Triage Nursing Assessment: Pt presented alert and oriented X 3, skin pwd. Pt ambulates with an unsteady gait, able to speak in clear sentences, having a hard time finding words. Pt has hx of migraines Physician History: This is a 68-year-old white female who has a history of coronary artery disease and has had stents placed in her heart vessels in the past. 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 Patient noticed numbness around her mouth and right hand yesterday approximately noon. Patient woke up this morning and noticed that her right hand was not working normally. She was confused felt nauseated and had headache. It is the worst headache she is ever had. She states she is having trouble finding the words to say. Patient has a history of hypertension and is on 3 different medications to treat this. Going in her hands and face have resolved and her right hand seems to be working well per her report. However the confusion still persists. She does not recall if she took her medicines this morning. Headache persists and is very localized central in the midline just at the hairline. Patient has no visual changes per her report. Her initial blood pressure in the emergency room is 100/87 Timing/Duration: yesterday, worse Quality: pressure Head Pain Location: frontal Severity of Pain-Max: moderate Severity of Pain-Current: moderate Recent Head Trauma: no recent headache/trauma Associated Symptoms: confusion, nausea/vomiting, speech problems Previous symptoms: no prior history Allergies/Adverse Reactions: Sulfa (Sulfonamide Antibiotics) Allergy (Verified 11/16/18 07:31) Home Medications: Albuterol Sulfate [Proair Hfa] 2 puffs IH Q4H 05/28/17 [History] Alprazolam 0.5 mg PO HS 05/28/17 [History] Aspirin [Muriel Chewable Aspirin] 81 mg PO DAILY 05/28/17 [History] Atorvastatin Calcium 40 mg PO DAILY 05/28/17 [History] Nebivolol HCl 5 MG [Bystolic 5 MG] 5 mg PO DAILY 05/28/17 [History] PANTOPRAZOLE 40 mg Tablet [Protonix 40MG Tablet] 40 mg PO DAILY 05/28/17 [ History] Quinapril HCl 10 mg [Accupril 10MG Tablet] 10 mg PO DAILY 05/28/17 [History] Amlodipine Besylate 5 mg PO DAILY 11/16/18 [History] Calcium Carbonate [Tums] 300 mg PO TID 11/16/18 [History] Cholecalciferol (Vitamin D3) [Vitamin D3] 1,000 unit PO DAILY 11/16/18 [History] Cyanocobalamin (Vitamin B-12) [Vitamin B-12] 1,000 mcg PO DAILY 11/16/18 [ History] Hx Tetanus, Diphtheria Vaccination/Date Given: No Hx Influenza Vaccination/Date Given: Yes Hx Pneumococcal Vaccination/Date Given: Yes Immunizations Up to Date: Yes Travel Risk - International Travel Have you traveled outside of the country in past 3 weeks: No Have you or anyone close to you been diagnosed with or: No Do your reside in a community with a known COVID-19 case?: Yes If Yes where:: [place] - Coronavirus Screening Has patient experienced Coronavirus symptoms: Yes Symptoms experienced: severe headache - Review of Systems Constitutional: No Symptoms Eyes: No Symptoms Ears, Nose, & Throat: No Symptoms Respiratory: No Symptoms Cardiac: No Symptoms Abdominal/Gastrointestinal: No Symptoms Genitourinary Symptoms: No Symptoms Musculoskeletal: No Symptoms Skin: No Symptoms Neurological: Headache, Parasthesia, Speech Changes Psychological: No Symptoms Endocrine: No Symptoms Hematologic/Lymphatic: No Symptoms Immunological/Allergic: No Symptoms All Other Systems: Reviewed and Negative - Past Medical History Pertinent Past Medical History: Yes Neurological History: No Pertinent History, Migraines ENT History: No Pertinent History Cardiac History: Coronary Artery Disease, Hypertension Respiratory History: No Pertinent History Endocrine Medical History: No Pertinent History Musculoskeletal History: No Pertinent History GI Medical History: No Pertinent History History: No Pertinent History Psycho-Social History: No Pertinent History Female Reproductive Disorders: No Pertinent History Other Medical History: poor historian - Past Surgical History Past Surgical History: Yes Neuro Surgical History: No Pertinent History Cardiac: Cardiac Catheterization, Cardiac Stent Respiratory: No Pertinent History Gastrointestinal: Cholecystectomy Genitourinary: No Pertinent History Musculoskeletal: No Pertinent History Female Surgical History: Hysterectomy Other Surgical History: slow to wake from anesthesia - Social History Smoking Status: Never smoker Exposure to second hand smoke: Yes Drug Use: none Patient Lives Alone: No - Female History Hx Now: No - Nursing Vital Signs Nursing Vital Signs: Initial Vital Signs Temperature 98.0 F 06/23/19 12:24 Pulse Rate 77 06/23/19 12:24 Respiratory Rate 18 06/23/19 12:24 Blood Pressure 100/87 06/23/19 12:24 O2 Sat by Pulse Oximetry 97 06/23/19 12:24 Pain Scale Pain Intensity 6 - Physical Exam General Appearance: no apparent distress, alert, anxiety Eye Exam: PERRL/EOMI, eyes nml inspection Ears, Nose, Throat Exam: normal ENT inspection, moist mucous membranes Neck Exam: normal inspection, non-tender, supple, full range of motion Respiratory Exam: normal breath sounds, lungs clear, airway intact, No chest tenderness, No respiratory distress Cardiovascular Exam: regular rate/rhythm, normal heart sounds, normal peripheral pulses Gastrointestinal/Abdominal Exam: soft, normal bowel sounds, No tenderness Back Exam: normal inspection, normal range of motion, No CVA tenderness, No vertebral tenderness Extremity Exam: normal inspection, normal range of motion, pelvis stable Mental Status Exam: alert, oriented x 3, 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: 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 hearing, normal speech, PERRL, facial paresthesias, tongue midline Coordination/Gait Exam: normal finger to nose, normal gait, normal cerebellar function Motor/Sensory Exam: no motor deficit, no sensory deficit, no pronator drift Skin Exam: normal color, warm, dry Lymphatic Exam: No adenopathy SpO2 Interpretation: normal SpO2: 97 O2 Delivery: Room Air - Course Nursing assessment & vital signs reviewed: Yes EKG Interpreted by Me: RATE (68), Sinus Rhythm, Left [place] Deviation, Non- specific ST Changes, Other (no comparison ekg) Ordered Tests: Active Orders 24 hr Category Date Time Status IV Insertion STAT Care 06/23/19 12:41 Active NPO (ED) STAT Care 06/23/19 12:40 Active NPO (ED) STAT Care 06/23/19 12:41 Active Pulse Oximetry (ED) STAT Care 06/23/19 12:41 Active HEAD WITHOUT CONTRAST [CT] Stat Exams 06/23/19 12:48 Completed CBC W DIFF Stat Lab 06/23/19 12:40 Completed CMP Stat Lab 06/23/19 12:40 Completed PROTIME WITH INR Stat Lab 06/23/19 12:40 Completed UA W/RFX UR CULTURE Stat Lab 06/23/19 14:33 Completed Medication Summary Generic Name Dose Route Start Last Admin Trade Name Sendy PRN Reason Stop Dose Admin Sodium Chloride 1,000 mls @ 100 mls/hr 06/23/19 12:45 06/23/19 12:46 Sodium Chloride 0.9% 1000 Ml IV 07/23/19 12:44 100 mls/hr .Q10H RACHELL Administration Discontinued Medications Generic Name Dose Route Start Last Admin Trade Name Sendy PRN Reason Stop Dose Admin Morphine Sulfate 4 mg 06/23/19 13:37 06/23/19 13:48 Morphine Sulfate 4 Mg Inj IV 06/23/19 13:38 4 mg STAT ONE Administration Morphine Sulfate Confirm 06/23/19 13:45 Morphine Sulfate 4 Mg Inj Administered 06/23/19 13:46 Dose 4 mg .ROUTE .STK-MED ONE Ondansetron HCl 4 mg 06/23/19 13:37 06/23/19 13:48 Zofran 4 Mg/2 Ml Vial IV 06/23/19 13:38 4 mg STAT ONE Administration Ondansetron HCl Confirm 06/23/19 13:45 Zofran 4 Mg/2 Ml Vial Administered 06/23/19 13:46 Dose 4 mg .ROUTE .STK-MED ONE Lab/Rad Data: Laboratory Result Diagrams 06/23/19 12:40 06/23/19 12:40 Laboratory Results 06/23/19 06/23/19 06/23/19 Range/Units 14:33 12:40 12:40 WBC (4.0-10.5) K/mm3 RBC (4.1-5.4) M/mm3 Hgb (12.0-16.0) gm/dl Hct (35-47) % MCV (78-100) fl MCH (26-32) pg MCHC (32-36) g/dl RDW (11.5-14.0) % Plt Count (150-450) K/mm3 MPV (7.5-11.0) fl Gran % (36.0-66.0) % Eos # (Auto) (0-0.5) Absolute Lymphs (auto) (1.0-4.6) Absolute Monos (auto) (0.0-1.3) Lymphocytes % (24.0-44.0) % Monocytes % (0.0-12.0) % Eosinophils % (0.00-5.0) % Basophils % (0.0-0.4) % Absolute Granulocytes (1.4-6.9) Basophils # (0-0.4) PT 12.2 (9.95-12.35) SECONDS INR 1.08 (0.8-3.0) Sodium 138 (137-145) mmol/L Potassium 3.6 (3.5-5.1) mmol/L Chloride 101 (98-107) mmol/L Carbon Dioxide 28 (22-30) mmol/L Anion Gap 12.3 (5-15) MEQ/L BUN 12 (7-17) mg/dL Creatinine 0.62 (0.52-1.04) mg/dL Estimated GFR > 60.0 ML/MIN Glucose 110 H (74-106) mg/dL Calcium 9.2 (8.4-10.2) mg/dL Total Bilirubin 1.00 (0.2-1.3) mg/dL AST 30 (14-36) U/L ALT 19 (0-35) U/L Alkaline Phosphatase 144 H (38-126) U/L Serum Total Protein 7.7 (6.3-8.2) g/dL Albumin 4.3 (3.5-5.0) g/dL Urine Color STRAW (YELLOW) Urine Appearance SLIGHTLY CLOUDY (CLEAR) Urine pH 8.0 (5-6) Ur Specific [place] 1.008 (1.005-1.025) Urine Protein NEGATIVE (Negative) Urine Ketones NEGATIVE (NEGATIVE) Urine Blood NEGATIVE (0-5) Vu/ul Urine Nitrite NEGATIVE (NEGATIVE) Urine Bilirubin NEGATIVE (NEGATIVE) Urine Urobilinogen NEGATIVE (0-1) mg/dL Ur Leukocyte Esterase NEGATIVE (NEGATIVE) Urine WBC (Auto) NONE (0-5) /HPF Urine RBC (Auto) NONE (0-2) /HPF U Epithel Cells (Auto) NONE (FEW) /HPF Urine Bacteria (Auto) NONE (NEGATIVE) /HPF Amorphous Crystals FEW (NEGATIVE) /HPF Urine Mucus (Auto) SLIGHT (NEGATIVE) /HPF Urine Culture Reflexed NO (NO) Urine Glucose NEGATIVE (NEGATIVE) mg/dL 06/23/19 Range/Units 12:40 WBC 10.5 (4.0-10.5) K/mm3 RBC 4.82 (4.1-5.4) M/mm3 Hgb 14.2 (12.0-16.0) gm/dl Hct 42.5 (35-47) % MCV 88.2 (78-100) fl MCH 29.5 (26-32) pg MCHC 33.4 (32-36) g/dl RDW 14.2 H (11.5-14.0) % Plt Count 265 (150-450) K/mm3 MPV 9.7 (7.5-11.0) fl Gran % 70.1 H (36.0-66.0) % Eos # (Auto) 0.12 (0-0.5) Absolute Lymphs (auto) 2.12 (1.0-4.6) Absolute Monos (auto) 0.86 (0.0-1.3) Lymphocytes % 20.3 L (24.0-44.0) % Monocytes % 8.2 (0.0-12.0) % Eosinophils % 1.1 (0.00-5.0) % Basophils % 0.3 (0.0-0.4) % Absolute Granulocytes 7.33 H (1.4-6.9) Basophils # 0.03 (0-0.4) PT (9.95-12.35) SECONDS INR (0.8-3.0) Sodium (137-145) mmol/L Potassium (3.5-5.1) mmol/L Chloride (98-107) mmol/L Carbon Dioxide (22-30) mmol/L Anion Gap (5-15) MEQ/L BUN (7-17) mg/dL Creatinine (0.52-1.04) mg/dL Estimated GFR ML/MIN Glucose (74-106) mg/dL Calcium (8.4-10.2) mg/dL Total Bilirubin (0.2-1.3) mg/dL AST (14-36) U/L ALT (0-35) U/L Alkaline Phosphatase (38-126) U/L Serum Total Protein (6.3-8.2) g/dL Albumin (3.5-5.0) g/dL Urine Color (YELLOW) Urine Appearance (CLEAR) Urine pH (5-6) Ur Specific [place] (1.005-1.025) Urine Protein (Negative) Urine Ketones (NEGATIVE) Urine Blood (0-5) Vu/ul Urine Nitrite (NEGATIVE) Urine Bilirubin (NEGATIVE) Urine Urobilinogen (0-1) mg/dL Ur Leukocyte Esterase (NEGATIVE) Urine WBC (Auto) (0-5) /HPF Urine RBC (Auto) (0-2) /HPF U Epithel Cells (Auto) (FEW) /HPF Urine Bacteria (Auto) (NEGATIVE) /HPF Amorphous Crystals (NEGATIVE) /HPF Urine Mucus (Auto) (NEGATIVE) /HPF Urine Culture Reflexed (NO) Urine Glucose (NEGATIVE) mg/dL - Progress Progress: improved, re-examined Air Movement: good Progress Note: 06/23/19 15:21 CT scan of the patient's head shows continued nonacute senile brain including a left internal capsule remote lacunar infarct. I spoke with the patient's Dr., Dr. Leal. Reviewed the patient history, condition, CAT scan results, and results of her EKG and laboratory work-up. Dr. Mujica feels that the patient can be discharged home. Patient is to call her office on Wednesday to arrange for a follow-up appointment for June 25 or . Patient is to stop her amlodipine medication. Patient is to return to the emergency department immediately if her symptoms worsen. Blood Culture(s) Obtained: No Antibiotics given: No Discussed with : Nisha - Departure Departure Disposition: Home Clinical Impression: TIA (transient ischemic attack), Low blood pressure, not hypotension Condition: Stable Critical Care Time: No Referrals: VALERIE LEAL, [Primary Care Provider] - Additional Instructions: Stop your amlodipine medication. Call Dr. Leal's office on Wednesday, June 26, 2019, to make arrangements for a follow-up appointment. Return to the emergency department immediately if your symptoms recur or worsen.
[2019-06-23] MEDS ORDERED: Sodium Chloride 0.9% 1000 ML 0 ML ONE (12:45)
[2019-06-23] MEDS ORDERED: Sodium Chloride 0.9% 1000 ML 1,000 ML IV SCH (12:45)
[2019-06-23 12:57] LABS: INR 1.08 (0.8-3.0); PROTIME 12.2 SECONDS (9.95-12.35)
[2019-06-23 12:59] LABS: Absolute Neutrophil Ct (ANC) 7.33 (1.4-6.9); BASOPHIL % 0.3 % (0.0-0.4); Basophil (Absolute #) 0.03 (0-0.4); Eosinophil % 1.1 % (0.00-5.0); Eosinophil (Absolute #) 0.12 (0-0.5); Hematocrit 42.5 % (35-47); Hemoglobin 14.2 gm/dl (12.0-16.0); Lymphocyte (Absolute #) 2.12 (1.0-4.6); Lymphocytes % 20.3 % (24.0-44.0); Mean Cell Volume 88.2 fl (78-100); Mean Corpuscular Hemoglobin 29.5 pg (26-32); Mean Corpuscular Hgb Concent. 33.4 g/dl (32-36); Mean Platelet Volume 9.7 fl (7.5-11.0); Monocyte (Absolute #) 0.86 (0.0-1.3); Monocytes % 8.2 % (0.0-12.0); Neutrophil % 70.1 % (36.0-66.0); Platelet Count 265 K/mm3 (150-450); Red Blood Count 4.82 M/mm3 (4.1-5.4); Red Cell Distribution Width 14.2 % (11.5-14.0); White Blood Count 10.5 K/mm3 (4.0-10.5)
[2019-06-23 13:02] LABS: ALBUMIN 4.3 g/dL (3.5-5.0); ALKALINE PHOSPHATASE 144 U/L (38-126); ANION GAP 12.3 MEQ/L (5-15); BLOOD UREA NITROGEN 12 mg/dL (7-17); CHLORIDE 101 mmol/L (98-107); Calcium 9.2 mg/dL (8.4-10.2); Carbon Dioxide 28 mmol/L (22-30); Creatinine 1 0.62 mg/dL (0.52-1.04); Glucose 110 mg/dL (74-106); Potassium 3.6 mmol/L (3.5-5.1); SGOT/AST 30 U/L (14-36); SGPT/ALT 19 U/L (0-35); SODIUM 138 mmol/L (137-145); Total Protein 7.7 g/dL (6.3-8.2)
--- NOTE | 2019-06-23 13:21 | XRAY ---
Indication: Headache. History TIA. Multiple contiguous axial images obtained through the head without contrast. Comparison: May 28, 2017. Again age-appropriate global atrophy and mild periventricular degenerative micro-ischemia bilaterally. Stable tiny remote lacunar infarct left internal capsule anteriorly. No acute intracranial hemorrhage, abnormal extra-axial fluid collection, or mass effect. Fourth ventricle is midline without hydrocephalus. Bony calvarium intact. Visualized paranasal sinuses and mastoid air cells are clear. Impression: Continued nonacute senile brain including left internal capsule remote lacunar infarct.
[2019-06-23] MEDS ORDERED: MORPHINE SULFATE 4 MG INJ IV ONE (13:37)
[2019-06-23] MEDS ORDERED: Zofran 4 MG/2 ML VIAL IV ONE (13:37)
[2019-06-23] MEDS ORDERED: Sodium Chloride 0.9% 1000 ML 1,000 ML ONE (13:45)
[2019-06-23] MEDS ORDERED: MORPHINE SULFATE 4 MG INJ ONE (13:45)
[2019-06-23] MEDS ORDERED: Zofran 4 MG/2 ML VIAL ONE (13:45)
[2019-06-23 14:56] LABS: Amourphous Crystal FEW /HPF (NEGATIVE); Appearance SLIGHTLY CLOUDY (CLEAR); Bilirubin NEGATIVE (NEGATIVE); Blood NEGATIVE Ery/ul (0-5); Glucose NEGATIVE (NEGATIVE); Ketones NEGATIVE (NEGATIVE); Leukocyte Esterase NEGATIVE (NEGATIVE); Mucus SLIGHT /HPF (NEGATIVE); Nitrite NEGATIVE (NEGATIVE); Protein,Urine Dip NEGATIVE (Negative); Specific Gravity 1.008 (1.005-1.025); Urobilinogen NEGATIVE mg/dL (0-1)
[2019-06-23 15:27] VITALS: BP 135/63; PULSE 78; O2SAT 94
== END 2019-06-23 16:14 | disposition home or self-care (01) ==
LOC: ED 12:16
DX: G45.9 Transient cerebral ischemic attack, unspecified (principal); R03.1 Nonspecific low blood-pressure reading; I25.10 Atherosclerotic heart disease of native coronary artery without angina pectoris; R51 Headache; Z79.899 Other long term (current) drug therapy; R20.2 Paresthesia of skin; R47.9 Unspecified speech disturbances; I10 Essential (primary) hypertension
CPT/HCPCS: 36000; 36415; 70450; 80053; 81001; 85025; 85610; 94760; 96360; 96374; 96375; 99284; J2270; J2405

== ENCOUNTER 2019-12-02 21:06 | Emergency (ER) | payer MEDICARE ==
[2019-12-02 22:06] LABS: Absolute Neutrophil Ct (ANC) 5.96 (1.4-6.9); BASOPHIL % 0.3 % (0.0-0.4); Basophil (Absolute #) 0.03 (0-0.4); Eosinophil % 3.6 % (0.00-5.0); Eosinophil (Absolute #) 0.35 (0-0.5); Hematocrit 45.7 % (35-47); Lymphocyte (Absolute #) 2.55 (1.0-4.6); Lymphocytes % 26.5 % (24.0-44.0); Mean Cell Volume 86.7 fl (78-100); Mean Corpuscular Hemoglobin 28.5 pg (26-32); Mean Corpuscular Hgb Concent. 32.8 g/dl (32-36); Monocyte (Absolute #) 0.74 (0.0-1.3); Monocytes % 7.7 % (0.0-12.0); Neutrophil % 61.9 % (36.0-66.0); Platelet Count 309 K/mm3 (150-450); Red Blood Count 5.27 M/mm3 (4.1-5.4); Red Cell Distribution Width 13.5 % (11.5-14.0); White Blood Count 9.6 K/mm3 (4.0-10.5)
[2019-12-02 22:20] LABS: ALBUMIN 4.8 g/dL (3.5-5.0); ALKALINE PHOSPHATASE 132 U/L (38-126); BLOOD UREA NITROGEN 8 mg/dL (7-17); CHLORIDE 103 mmol/L (98-107); Calcium 9.7 mg/dL (8.4-10.2); Carbon Dioxide 26 mmol/L (22-30); Creatinine 1 0.62 mg/dL (0.52-1.04); EST GLOMERULAR FILTRATION RATE > 60.0 ML/MIN; Glucose 182 mg/dL (74-106); Potassium 3.7 mmol/L (3.5-5.1); SGOT/AST 28 U/L (14-36); SGPT/ALT 17 U/L (0-35); SODIUM 138 mmol/L (137-145); Total Protein 8.4 g/dL (6.3-8.2)
[2019-12-02 22:29] LABS: INFLUENZA A NEGATIVE (NEGATIVE); INFLUENZA B NEGATIVE (NEGATIVE); RESPIRATORY SYNCTIAL VIRUS NEGATIVE (Negative)
[2019-12-02 22:29] LABS: MAGNESIUM 2.2 mg/dL (1.6-2.3)
[2019-12-02 23:06] LABS: Appearance CLEAR (CLEAR); Bacteria RARE /HPF (NEGATIVE); Bilirubin NEGATIVE (NEGATIVE); Blood SMALL Ery/ul (0-5); Glucose NEGATIVE (NEGATIVE); Ketones NEGATIVE (NEGATIVE); Leukocyte Esterase SMALL (NEGATIVE); Nitrite NEGATIVE (NEGATIVE); Protein,Urine Dip NEGATIVE (Negative); Specific Gravity 1.003 (1.005-1.025); Urobilinogen NEGATIVE mg/dL (0-1)
[2019-12-02] MEDS ORDERED: ROCEPHIN 1 Gm-D5w 50 ml Bag** 1 G/50 ML IVPB IV ONE (23:47)
[2019-12-02] MEDS ORDERED: Sodium Chloride 0.9% 1000 ML 1,000 ML ONE (23:47)
[2019-12-02] MEDS: ROCEPHIN 1 Gm-D5w 50 ml Bag** 1 G/50 ML IVPB IV STA (23:52)
[2019-12-02] MEDS: Sodium Chloride 0.9% 1000 ML 1,000 ML IV STA (23:52)
--- NOTE | 2019-12-02 23:52 | ERPHSYRPT ---
- History of Present Illness Time Seen by Provider: 12/02/19 21:18 Source: patient Exam Limitations: no limitations Patient Subjective Stated Complaint: pt states she has been feeling overly tired and weak today. has had some vomiting today also. pt states she thinks she may have low potassium. states her arms feel weak and heavy. Triage Nursing Assessment: pt alert and oriented, answers questions approp. pt ambulatory with steady gait noted. respriations nonlabored with lungs cta. skin warm and dry. pupils equal and reactive. bilat gold nib grinder equal and wnl. no facial droop noted. Physician History: 68 years old female with history of hypertension, hyperlipidemia, coronary artery disease status post stenting, history of hypokalemia presented in the ER with chief complaint of generalized body aches, fatigue, cramping and all extremities off and on for the last 2 days with progressive worsening. Patient reports she gets similar symptoms with hypokalemia. Patient reports she got flu shot 3 days ago and next morning woke up with all the symptoms. She also has mild nausea with vomiting once but denies any abdominal pain diarrhea or constipation. Feels fatigued and tired with no energy to do her routine activ ities. Patient reports she is worn out with minimal activities. Denies any sick contact. Timing/Duration: day(s) (2), gradual onset, worse Severity: moderate Modifying Factors: Improves With: movement, rest Associated Symptoms: nausea, vomiting, cough, malaise, weakness, No abdominal pain, No shortness of breath, No chest pain, No headaches Allergies/Adverse Reactions: Sulfa (Sulfonamide Antibiotics) Allergy (Verified 12/02/19 21:31) Home Medications: Albuterol Sulfate [Proair Hfa] 2 puffs IH Q4H 05/28/17 [History] Alprazolam 0.5 mg PO HS 05/28/17 [History] Aspirin [Muriel Chewable Aspirin] 81 mg PO DAILY 05/28/17 [History] Atorvastatin Calcium 40 mg PO DAILY 05/28/17 [History] Nebivolol HCl 5 MG [Bystolic 5 MG] 5 mg PO DAILY 05/28/17 [History] PANTOPRAZOLE 40 mg Tablet [Protonix 40MG Tablet] 40 mg PO DAILY 05/28/17 [History] Quinapril HCl 10 mg [Accupril 10MG Tablet] 10 mg PO DAILY 05/28/17 [History] Amlodipine Besylate 5 mg PO DAILY 11/16/18 [History] Calcium Carbonate [Tums] 300 mg PO TID 11/16/18 [History] Cholecalciferol (Vitamin D3) [Vitamin D3] 1,000 unit PO DAILY 11/16/18 [History] Cyanocobalamin (Vitamin B-12) [Vitamin B-12] 1,000 mcg PO DAILY 11/16/18 [History] Hx Tetanus, Diphtheria Vaccination/Date Given: No Hx Influenza Vaccination/Date Given: Yes () Hx Pneumococcal Vaccination/Date Given: Yes Immunizations Up to Date: No Travel Risk - International Travel Have you traveled outside of the country in past 3 weeks: No - Coronavirus Screening Are you exhibiting any of the following symptoms?: Yes Symptoms: Shortness of Breath, Vomiting/Diarrhea, Headaches/Body Aches/Fatigue Close contact with a COVID-19 positive Pt in past 14-21 Days: No - Review of Systems Constitutional: Fatigue, Malaise, Weakness Eyes: No Symptoms Ears, Nose, & Throat: No Symptoms Respiratory: Cough Cardiac: No Symptoms Abdominal/Gastrointestinal: Nausea, Vomiting Genitourinary Symptoms: No Symptoms Musculoskeletal: Myalgias Skin: No Symptoms Neurological: No Symptoms Psychological: No Symptoms Endocrine: No Symptoms Hematologic/Lymphatic: No Symptoms Immunological/Allergic: No Symptoms - Past Medical History Pertinent Past Medical History: Yes Neurological History: No Pertinent History, Migraines ENT History: No Pertinent History Cardiac History: Coronary Artery Disease, Hypertension, Myocardial Infarction ([place]) Respiratory History: No Pertinent History Endocrine Medical History: No Pertinent History Musculoskeletal History: No Pertinent History GI Medical History: No Pertinent History History: No Pertinent History Psycho-Social History: No Pertinent History Female Reproductive Disorders: No Pertinent History Other Medical History: poor historian - Past Surgical History Past Surgical History: Yes Neuro Surgical History: No Pertinent History Cardiac: Cardiac Catheterization, Cardiac Stent Respiratory: No Pertinent History Gastrointestinal: Appendectomy, Cholecystectomy Genitourinary: No Pertinent History Musculoskeletal: No Pertinent History Female Surgical History: Hysterectomy Other Surgical History: slow to wake from anesthesia, 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 - Social History Smoking Status: Never smoker Exposure to second hand smoke: No Drug Use: none Patient Lives Alone: No - Nursing Vital Signs Nursing Vital Signs: Initial Vital Signs Temperature 98.5 F 12/02/19 21:15 Pulse Rate 88 12/02/19 21:15 Respiratory Rate 18 12/02/19 21:15 Blood Pressure 180/84 12/02/19 21:15 O2 Sat by Pulse Oximetry 97 12/02/19 21:15 Pain Scale Pain Intensity 5 - Physical Exam General Appearance: no apparent distress, alert, anxiety Eye Exam: PERRL/EOMI, eyes nml inspection Ears, Nose, Throat Exam: normal ENT inspection, TMs normal, pharynx normal Neck Exam: normal inspection, supple, full range of motion Respiratory Exam: normal breath sounds, lungs clear Cardiovascular Exam: regular rate/rhythm, normal heart sounds Gastrointestinal/Abdomen Exam: soft, normal bowel sounds, No tenderness Back Exam: normal inspection, normal range of motion, No CVA tenderness Extremity Exam: normal inspection, normal range of motion, pelvis stable Neurologic Exam: alert, oriented x 3, cooperative, merchandising internship II-XII nml as tested Skin Exam: normal color SpO2 Interpretation: normal SpO2: 94 O2 Delivery: Room Air - Course Nursing assessment & vital signs reviewed: Yes EKG Interpreted by Me: RATE (81), Sinus Rhythm, Left Cody Deviation, NORMAL INTERVALS, Q-wave (Anterior leads) Ordered Tests: Active Orders 24 hr Category Date Time Status Mill Feeder STAT Care 12/02/19 21:31 Active EKG-ER Only STAT Care 12/02/19 21:30 Active IV Insertion STAT Care 12/02/19 21:30 Active CHEST 1 VIEW (PORTABLE) Stat Exams 12/02/19 21:30 Taken BLOOD CULTURE Stat Lab 12/02/19 21:45 Received CBC W DIFF Stat Lab 12/02/19 21:30 Completed CMP Stat Lab 12/02/19 21:30 Completed CULTURE,URINE Stat Lab 12/02/19 22:50 Received Lactic Acid Stat Lab 12/02/19 21:41 Completed Lactic Acid Stat Lab 12/02/19 23:51 Received MAG [MAGNESIUM] Stat Lab 12/02/19 21:30 Completed NT PRO BNP Stat Lab 12/02/19 21:30 Completed TROPONIN Q3H Lab 12/02/19 21:30 Completed TROPONIN Q3H Lab 12/03/19 00:45 Ordered TROPONIN Q3H Lab 12/03/19 03:45 Ordered TROPONIN Q3H Lab 12/03/19 06:45 Ordered TROPONIN Q3H Lab 12/03/19 09:45 Ordered UA W/RFX UR CULTURE Stat Lab 12/02/19 22:50 Completed Medication Summary Generic Name Dose Route Start Last Admin Trade Name Sendy PRN Reason Stop Dose Admin Sodium Chloride 1,000 mls @ 499 mls/hr 12/02/19 23:42 12/02/19 23:52 Sodium Chloride 0.9% 1000 Ml IV 12/03/19 01:42 499 mls/hr .Q2H1M STA Administration Discontinued Medications Generic Name Dose Route Start Last Admin Trade Name Sendy PRN Reason Stop Dose Admin Ceftriaxone Sodium/Dextrose 1 g in 50 mls @ 100 mls/hr 12/02/19 23:42 12/02/19 23:52 Rocephin 1 Gm-D5w 50 Ml Bag IV 12/03/19 00:11 100 ml/hr STAT STA 100 mls/hr Administration Sodium Chloride Confirm 12/02/19 23:47 Sodium Chloride 0.9% 1000 Ml Administered 12/02/19 23:48 Dose 1,000 mls @ ud .ROUTE .STK-MED ONE Ceftriaxone Sodium/Dextrose Confirm 12/02/19 23:47 Rocephin 1 Gm-D5w 50 Ml Bag Administered 12/02/19 23:48 Dose 1 g in 50 mls @ ud IV .STK-MED ONE Ketorolac Tromethamine 30 mg 12/03/19 00:04 12/03/19 00:21 Toradol 30 Mg Injection IM 12/03/19 00:05 30 mg STAT ONE Administration Ketorolac Tromethamine Confirm 12/03/19 00:19 Toradol 30 Mg Injection Administered 12/03/19 00:20 Dose 30 mg .ROUTE .STK-MED ONE Ondansetron HCl 4 mg 12/03/19 00:05 12/03/19 00:22 Zofran 4 Mg/2 Ml Vial IV 12/03/19 00:06 4 mg STAT ONE Administration Ondansetron HCl Confirm 12/03/19 00:19 Zofran 4 Mg/2 Ml Vial Administered 12/03/19 00:20 Dose 4 mg .ROUTE .STK-MED ONE Lab/Rad Data: Laboratory Result Diagrams 12/02/19 21:30 12/02/19 21:30 Laboratory Results 12/02/19 12/02/19 12/02/19 Range/Units 22:50 21:45 21:41 WBC (4.0-10.5) K/mm3 RBC (4.1-5.4) M/mm3 Hgb (12.0-16.0) gm/dl Hct (35-47) % MCV (78-100) fl MCH (26-32) pg MCHC (32-36) g/dl RDW (11.5-14.0) % Plt Count (150-450) K/mm3 MPV (7.5-11.0) fl Gran % (36.0-66.0) % Eos # (Auto) (0-0.5) Absolute Lymphs (auto) (1.0-4.6) Absolute Monos (auto) (0.0-1.3) Lymphocytes % (24.0-44.0) % Monocytes % (0.0-12.0) % Eosinophils % (0.00-5.0) % Basophils % (0.0-0.4) % Absolute Granulocytes (1.4-6.9) Basophils # (0-0.4) Sodium (137-145) mmol/L Potassium (3.5-5.1) mmol/L Chloride (98-107) mmol/L Carbon Dioxide (22-30) mmol/L Anion Gap (5-15) MEQ/L BUN (7-17) mg/dL Creatinine (0.52-1.04) mg/dL Estimated GFR ML/MIN Glucose (74-106) mg/dL Lactic Acid 2.2 H (0.4-2.0) Calcium (8.4-10.2) mg/dL Magnesium (1.6-2.3) mg/dL Total Bilirubin (0.2-1.3) mg/dL AST (14-36) U/L ALT (0-35) U/L Alkaline Phosphatase (38-126) U/L Troponin I (0.000-0.034) ng/mL NT-Pro-B Natriuret Pep (0-900) pg/mL Serum Total Protein (6.3-8.2) g/dL Albumin (3.5-5.0) g/dL Urine Color COLORLESS (YELLOW) Urine Appearance CLEAR (CLEAR) Urine pH 8.0 (5-6) Ur Specific Sarah 1.003 (1.005-1.025) Urine Protein NEGATIVE (Negative) Urine Ketones NEGATIVE (NEGATIVE) Urine Blood SMALL (0-5) Vu/ul Urine Nitrite NEGATIVE (NEGATIVE) Urine Bilirubin NEGATIVE (NEGATIVE) Urine Urobilinogen NEGATIVE (0-1) mg/dL Ur Leukocyte Esterase SMALL (NEGATIVE) Urine WBC (Auto) 6-10 (0-5) /HPF Urine RBC (Auto) NONE (0-2) /HPF U Epithel Cells (Auto) NONE (FEW) /HPF Urine Bacteria (Auto) RARE (NEGATIVE) /HPF Urine Culture Reflexed YES (NO) Urine Glucose NEGATIVE (NEGATIVE) mg/dL Influenza Type A Ag NEGATIVE (NEGATIVE) Influenza Type B Ag NEGATIVE (NEGATIVE) RSV (PCR) NEGATIVE (Negative) 12/02/19 12/02/19 12/02/19 Range/Units 21:30 21:30 21:30 WBC (4.0-10.5) K/mm3 RBC (4.1-5.4) M/mm3 Hgb (12.0-16.0) gm/dl Hct (35-47) % MCV (78-100) fl MCH (26-32) pg MCHC (32-36) g/dl RDW (11.5-14.0) % Plt Count (150-450) K/mm3 MPV (7.5-11.0) fl Gran % (36.0-66.0) % Eos # (Auto) (0-0.5) Absolute Lymphs (auto) (1.0-4.6) Absolute Monos (auto) (0.0-1.3) Lymphocytes % (24.0-44.0) % Monocytes % (0.0-12.0) % Eosinophils % (0.00-5.0) % Basophils % (0.0-0.4) % Absolute Granulocytes (1.4-6.9) Basophils # (0-0.4) Sodium 138 (137-145) mmol/L Potassium 3.7 (3.5-5.1) mmol/L Chloride 103 (98-107) mmol/L Carbon Dioxide 26 (22-30) mmol/L Anion Gap 13.0 (5-15) MEQ/L BUN 8 (7-17) mg/dL Creatinine 0.62 (0.52-1.04) mg/dL Estimated GFR > 60.0 ML/MIN Glucose 182 H (74-106) mg/dL Lactic Acid (0.4-2.0) Calcium 9.7 (8.4-10.2) mg/dL Magnesium 2.2 (1.6-2.3) mg/dL Total Bilirubin 0.80 (0.2-1.3) mg/dL AST 28 (14-36) U/L ALT 17 (0-35) U/L Alkaline Phosphatase 132 H (38-126) U/L Troponin I < 0.012 (0.000-0.034) ng/mL NT-Pro-B Natriuret Pep 143 (0-900) pg/mL Serum Total Protein 8.4 H (6.3-8.2) g/dL Albumin 4.8 (3.5-5.0) g/dL Urine Color (YELLOW) Urine Appearance (CLEAR) Urine pH (5-6) Ur Specific Sarah (1.005-1.025) Urine Protein (Negative) Urine Ketones (NEGATIVE) Urine Blood (0-5) Vu/ul Urine Nitrite (NEGATIVE) Urine Bilirubin (NEGATIVE) Urine Urobilinogen (0-1) mg/dL Ur Leukocyte Esterase (NEGATIVE) Urine WBC (Auto) (0-5) /HPF Urine RBC (Auto) (0-2) /HPF U Epithel Cells (Auto) (FEW) /HPF Urine Bacteria (Auto) (NEGATIVE) /HPF Urine Culture Reflexed (NO) Urine Glucose (NEGATIVE) mg/dL Influenza Type A Ag (NEGATIVE) Influenza Type B Ag (NEGATIVE) RSV (PCR) (Negative) 12/02/19 Range/Units 21:30 WBC 9.6 (4.0-10.5) K/mm3 RBC 5.27 (4.1-5.4) M/mm3 Hgb 15.0 (12.0-16.0) gm/dl Hct 45.7 (35-47) % MCV 86.7 (78-100) fl MCH 28.5 (26-32) pg MCHC 32.8 (32-36) g/dl RDW 13.5 (11.5-14.0) % Plt Count 309 (150-450) K/mm3 MPV 10.0 (7.5-11.0) fl Gran % 61.9 (36.0-66.0) % Eos # (Auto) 0.35 (0-0.5) Absolute Lymphs (auto) 2.55 (1.0-4.6) Absolute Monos (auto) 0.74 (0.0-1.3) Lymphocytes % 26.5 (24.0-44.0) % Monocytes % 7.7 (0.0-12.0) % Eosinophils % 3.6 (0.00-5.0) % Basophils % 0.3 (0.0-0.4) % Absolute Granulocytes 5.96 (1.4-6.9) Basophils # 0.03 (0-0.4) Sodium (137-145) mmol/L Potassium (3.5-5.1) mmol/L Chloride (98-107) mmol/L Carbon Dioxide (22-30) mmol/L Anion Gap (5-15) MEQ/L BUN (7-17) mg/dL Creatinine (0.52-1.04) mg/dL Estimated GFR ML/MIN Glucose (74-106) mg/dL Lactic Acid (0.4-2.0) Calcium (8.4-10.2) mg/dL Magnesium (1.6-2.3) mg/dL Total Bilirubin (0.2-1.3) mg/dL AST (14-36) U/L ALT (0-35) U/L Alkaline Phosphatase (38-126) U/L Troponin I (0.000-0.034) ng/mL NT-Pro-B Natriuret Pep (0-900) pg/mL Serum Total Protein (6.3-8.2) g/dL Albumin (3.5-5.0) g/dL Urine Color (YELLOW) Urine Appearance (CLEAR) Urine pH (5-6) Ur Specific Sarah (1.005-1.025) Urine Protein (Negative) Urine Ketones (NEGATIVE) Urine Blood (0-5) Vu/ul Urine Nitrite (NEGATIVE) Urine Bilirubin (NEGATIVE) Urine Urobilinogen (0-1) mg/dL Ur Leukocyte Esterase (NEGATIVE) Urine WBC (Auto) (0-5) /HPF Urine RBC (Auto) (0-2) /HPF U Epithel Cells (Auto) (FEW) /HPF Urine Bacteria (Auto) (NEGATIVE) /HPF Urine Culture Reflexed (NO) Urine Glucose (NEGATIVE) mg/dL Influenza Type A Ag (NEGATIVE) Influenza Type B Ag (NEGATIVE) RSV (PCR) (Negative) - Progress Progress: improved, re-examined Progress Note: She is given a small bolus of fluid. EKG showed sinus rhythm with no acute ST elevations. Negative troponins. Normal electrolytes. Chest x-ray negative for any cardiopulmonary findings. She does have UTI and given a dose of Rocephin. Patient is feeling better on reevaluation. She has a mild elevated lactate which could be secondary to some vomiting/dehydration. Recommended increase fluid intake. I would give her Zofran and Keflex to go home and outpatient follow-up. Her symptoms could be secondary to UTI versus viral etiology. At this point I do not think patient needs any further work-up and is stable for discharge with outpatient follow-up. Discussed signs symptoms of worsening needing return to ER which she seems understanding. Counseled pt/family regarding: lab results, diagnosis, need for follow-up, rad results - Departure Departure Disposition: Home Clinical Impression: Generalized weakness, Acute UTI Condition: Stable Critical Care Time: No Referrals: VALERIE HOYT DO [Primary Care Provider] - Follow Up with PCP/3 days Instructions: Urinary Tract Infection, Adult (DC), Generalized Weakness (DC) Additional Instructions: Drink plenty of fluids. Take Tylenol/Zofran as needed. Follow-up with your [facility] physician for reevaluation. Return to ER for worsening weakness or if develop fever chills, intractable vomiting etc. Prescriptions: Ondansetron ODT 4 MG [Zofran Odt 4 mg] 4 mg PO Q6H PRN PRN #10 tab.rapdis PRN Reason: Vomiting Cephalexin Mh 500 mg [Keflex 500 mg] 500 mg PO TID #21 capsule
[2019-12-03] MEDS ORDERED: Zofran 4 MG/2 ML VIAL ONE (00:19)
[2019-12-03] MEDS ORDERED: TORAdol 30 mg Injection ONE (00:19)
[2019-12-03] MEDS: TORAdol 30 mg Injection IM ONE (00:21)
[2019-12-03] MEDS: Zofran 4 MG/2 ML VIAL IV ONE (00:22)
[2019-12-03 01:03] VITALS: BP 175/89; PULSE 74; O2SAT 96
--- NOTE | 2019-12-03 06:41 | XRAY ---
Indication: General weakness. Comparison: November 16, 2018. Portable chest remains clear again with tiny right apical calcified granuloma. Heart is not enlarged. Bony thorax intact. No new/acute findings.
== END 2019-12-03 00:55 | disposition home or self-care (01) ==
LOC: ED 21:06
DX: R53.1 Weakness (principal); N39.0 Urinary tract infection, site not specified; I10 Essential (primary) hypertension; E78.5 Hyperlipidemia, unspecified; I25.810 Atherosclerosis of coronary artery bypass graft(s) without angina pectoris; Z79.899 Other long term (current) drug therapy; I25.2 Old myocardial infarction
CPT/HCPCS: 36000; 36415; 71045; 80053; 81001; 83605; 83735; 83880; 84484; 85025; 87040; 87086; 87631; 93005; 93041; 96365; 96374; 96375; 99284; U0003; J0696; J1885; J2405

== ENCOUNTER 2020-08-31 07:01 | Emergency (ER) | payer MEDICARE ==
[2020-08-31] MEDS ORDERED: Sodium Chloride 0.9% 1000 ML 1,000 ML IV SCH (07:15)
[2020-08-31] MEDS ORDERED: Zofran 4 MG/2 ML VIAL IV ONE (07:15)
--- NOTE | 2020-08-31 07:15 | ERPHSYRPT ---
- History of Present Illness Time Seen by Provider: 08/31/20 07:15 Source: patient, family Exam Limitations: clinical condition Physician History: This is a 69-year-old white female who woke up this morning with a "migraine headache". It is in the right forehead region. There is throbbing and aching. She is nauseated but has not vomited. She has not had a fever. She denies chest pain. She denies shortness of breath. Patient states that she last had a migraine episode approximately 40 years ago. The patient has a history of hypertension, gastroesophageal reflux disease, coronary artery disease with stent in place, and TIAs. Patient did not hit her head. Patient's primary care physician is Dr. Bauman. Patient has not had fevers. She has not had any abdominal pain. She has not had any diarrhea. She does feel unsteady when she is walking this morning. Timing/Duration: today Quality: aching, throbbing Head Pain Location: frontal Severity of Pain-Max: moderate Severity of Pain-Current: moderate Recent Head Trauma: no recent headache/trauma Modifying Factors: Improves With: exposure to light, noise Associated Symptoms: dizziness, nausea/vomiting, No fever/chills, No loss of consciousness, No neck pain, No stiff neck Previous symptoms: no prior history Allergies/Adverse Reactions: Sulfa (Sulfonamide Antibiotics) Allergy (Verified 08/31/20 07:22) Home Medications: Albuterol Sulfate [Proair Hfa] 2 puffs IH Q4H 05/28/17 [History] Alprazolam 0.5 mg PO BID 05/28/17 [History] Aspirin [Muriel Chewable Aspirin] 81 mg PO DAILY 05/28/17 [History] Atorvastatin Calcium 20 mg PO DAILY 05/28/17 [History] Nebivolol HCl 5 MG [Bystolic 5 MG] 10 mg PO DAILY 05/28/17 [History] PANTOPRAZOLE 40 mg Tablet [Protonix 40MG Tablet] 40 mg PO DAILY 05/28/17 [History] Quinapril HCl 10 mg [Accupril 10MG Tablet] 10 mg PO DAILY 05/28/17 [History] Amlodipine Besylate 2.5 mg PO BID 11/16/18 [History] Cholecalciferol (Vitamin D3) [Vitamin D3] 1,000 unit PO DAILY 11/16/18 [History] Cyanocobalamin (Vitamin B-12) [Vitamin B-12] 1,000 mcg PO DAILY 11/16/18 [History] Hx Tetanus, Diphtheria Vaccination/Date Given: No Hx Influenza Vaccination/Date Given: Yes () Hx Pneumococcal Vaccination/Date Given: Yes Travel Risk - International Travel Have you traveled outside of the country in past 3 weeks: No - Coronavirus Screening Are you exhibiting any of the following symptoms?: No Close contact with a COVID-19 positive Pt in past 14-21 Days: No - Review of Systems Constitutional: No Symptoms Eyes: No Symptoms Ears, Nose, & Throat: No Symptoms Respiratory: No Symptoms Cardiac: No Symptoms Abdominal/Gastrointestinal: Nausea, No Abdominal Pain, No Vomiting, No Diarrhea Genitourinary Symptoms: No Symptoms Musculoskeletal: No Symptoms Skin: No Symptoms Neurological: Dizziness, Headache Psychological: No Symptoms Endocrine: No Symptoms Hematologic/Lymphatic: No Symptoms Immunological/Allergic: No Symptoms All Other Systems: Reviewed and Negative - Past Medical History Pertinent Past Medical History: Yes Neurological History: No Pertinent History, Migraines ENT History: No Pertinent History Cardiac History: Coronary Artery Disease, Hypertension, Myocardial Infarction ([place]) Respiratory History: No Pertinent History Endocrine Medical History: No Pertinent History Musculoskeletal History: No Pertinent History GI Medical History: No Pertinent History History: No Pertinent History Psycho-Social History: No Pertinent History Female Reproductive Disorders: No Pertinent History Other Medical History: poor historian - Past Surgical History Past Surgical History: Yes Neuro Surgical History: No Pertinent History Cardiac: Cardiac Catheterization, Cardiac Stent Respiratory: No Pertinent History Gastrointestinal: Appendectomy, Cholecystectomy Genitourinary: No Pertinent History Musculoskeletal: No Pertinent History Female Surgical History: Hysterectomy Other Surgical History: slow to wake from anesthesia, 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 - Social History Smoking Status: Never smoker Exposure to second hand smoke: No Drug Use: none Patient Lives Alone: No - Nursing Vital Signs Nursing Vital Signs: Initial Vital Signs Temperature 96.8 F 08/31/20 07:09 Pulse Rate 75 08/31/20 07:09 Respiratory Rate 25 H 08/31/20 07:09 Blood Pressure 153/65 08/31/20 07:09 O2 Sat by Pulse Oximetry 99 08/31/20 07:09 Pain Scale Pain Intensity 3 - Physical Exam General Appearance: mild distress, alert, anxiety Eye Exam: PERRL/EOMI, eyes nml inspection Ears, Nose, Throat Exam: normal ENT inspection, moist mucous membranes Neck Exam: normal inspection, non-tender, supple, full range of motion Respiratory Exam: normal breath sounds, lungs clear, airway intact, No chest tenderness, No respiratory distress Cardiovascular Exam: regular rate/rhythm, normal heart sounds, normal peripheral pulses Gastrointestinal/Abdominal Exam: soft, normal bowel sounds, No tenderness Back Exam: normal inspection, normal range of motion, No CVA tenderness, No vertebral tenderness Extremity Exam: normal inspection, normal range of motion, pelvis stable Mental Status Exam: alert, oriented x 3, 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 Comparison EKG dated 12/01 and is no changes.) Ordered Tests: Active Orders 24 hr Category Date Time Status Clean Catch Urine Specimen STAT Care 08/31/20 07:15 Active EKG-ER Only STAT Care 08/31/20 07:17 Active IV Insertion STAT Care 08/31/20 07:15 Active Pulse Oximetry (ED) STAT Care 08/31/20 07:15 Active HEAD WITHOUT CONTRAST [CT] Stat Exams 08/31/20 07:16 Taken CBC W DIFF Stat Lab 08/31/20 07:35 Completed CMP Stat Lab 08/31/20 07:35 Completed Lactic Acid Urgent Lab 08/31/20 07:15 Completed MAGNESIUM Stat Lab 08/31/20 07:35 Completed TROPONIN Q3H Lab 08/31/20 07:35 Completed TROPONIN Q3H Lab 08/31/20 10:30 Ordered TROPONIN Q3H Lab 08/31/20 13:30 Ordered TROPONIN Q3H Lab 08/31/20 16:30 Ordered TROPONIN Q3H Lab 08/31/20 19:30 Ordered UA W/RFX UR CULTURE Stat Lab 08/31/20 07:26 Completed Urine Triage Profile Stat Lab 08/31/20 07:26 Completed Medication Summary Generic Name Dose Route Start Last Admin Trade Name Sendy PRN Reason Stop Dose Admin Sodium Chloride 1,000 mls @ 100 mls/hr 08/31/20 07:15 08/31/20 07:39 Sodium Chloride 0.9% 1000 Ml IV 09/30/20 07:14 100 mls/hr .Q10H RACHELL Administration Discontinued Medications Generic Name Dose Route Start Last Admin Trade Name Sendy PRN Reason Stop Dose Admin Morphine Sulfate 4 mg 08/31/20 07:30 08/31/20 07:32 Morphine Sulfate 4 Mg Inj IV 08/31/20 07:31 4 mg STAT ONE Administration Morphine Sulfate Confirm 08/31/20 07:30 Morphine Sulfate 4 Mg Inj Administered 08/31/20 07:31 Dose 4 mg .ROUTE .STK-MED ONE Ondansetron HCl 4 mg 08/31/20 07:15 08/31/20 07:32 Zofran 4 Mg/2 Ml Vial IV 08/31/20 07:16 4 mg STAT ONE Administration Ondansetron HCl Confirm 08/31/20 07:30 Zofran 4 Mg/2 Ml Vial Administered 08/31/20 07:31 Dose 4 mg .ROUTE .STK-MED ONE Lab/Rad Data: Laboratory Result Diagrams 08/31/20 07:35 08/31/20 07:35 Laboratory Results 08/31/20 08/31/20 08/31/20 Range/Units 07:35 07:35 07:35 WBC 10.2 (4.0-10.5) K/mm3 RBC 5.08 (4.1-5.4) M/mm3 Hgb 14.4 (12.0-16.0) gm/dl Hct 44.3 (35-47) % MCV 87.2 (78-100) fl MCH 28.3 (26-32) pg MCHC 32.5 (32-36) g/dl RDW 13.4 (11.5-14.0) % Plt Count 274 (150-450) K/mm3 MPV 9.4 (7.5-11.0) fl Gran % 72.7 H (36.0-66.0) % Eos # (Auto) 0.15 (0-0.5) Absolute Lymphs (auto) 1.83 (1.0-4.6) Absolute Monos (auto) 0.77 (0.0-1.3) Lymphocytes % 17.9 L (24.0-44.0) % Monocytes % 7.5 (0.0-12.0) % Eosinophils % 1.5 (0.00-5.0) % Basophils % 0.4 (0.0-0.4) % Absolute Granulocytes 7.43 H (1.4-6.9) Basophils # 0.04 (0-0.4) Sodium 137 (137-145) mmol/L Potassium 3.7 (3.5-5.1) mmol/L Chloride 101 (98-107) mmol/L Carbon Dioxide 26 (22-30) mmol/L Anion Gap 13.6 (5-15) MEQ/L BUN 8 (7-17) mg/dL Creatinine 0.63 (0.52-1.04) mg/dL Estimated GFR > 60.0 ML/MIN Glucose 133 H (74-106) mg/dL Lactic Acid (0.4-2.0) Calcium 9.3 (8.4-10.2) mg/dL Magnesium 2.0 (1.6-2.3) mg/dL Total Bilirubin 0.70 (0.2-1.3) mg/dL AST 27 (14-36) U/L ALT 18 (0-35) U/L Alkaline Phosphatase 134 H (38-126) U/L Troponin I < 0.012 (0.000-0.034) ng/mL Serum Total Protein 7.5 (6.3-8.2) g/dL Albumin 4.4 (3.5-5.0) g/dL Urine Color (YELLOW) Urine Appearance (CLEAR) Urine pH (5-6) Ur Specific Divide (1.005-1.025) Urine Protein (Negative) Urine Ketones (NEGATIVE) Urine Blood (0-5) Vu/ul Urine Nitrite (NEGATIVE) Urine Bilirubin (NEGATIVE) Urine Urobilinogen (0-1) mg/dL Ur Leukocyte Esterase (NEGATIVE) Urine WBC (Auto) (0-5) /HPF Urine RBC (Auto) (0-2) /HPF U Epithel Cells (Auto) (FEW) /HPF Urine Bacteria (Auto) (NEGATIVE) /HPF Urine Culture Reflexed (NO) Urine Glucose (NEGATIVE) mg/dL Urine Opiates Level (NEGATIVE) Ur Methadone (NEGATIVE) Urine Barbiturates (NEGATIVE) Ur Phencyclidine (PCP) (NEGATIVE) Urine Amphetamine (NEGATIVE) U Benzodiazepine Level (NEGATIVE) Urine Cocaine (NEGATIVE) Urine Marijuana (THC) (NEGATIVE) 08/31/20 08/31/20 08/31/20 Range/Units 07:26 07:26 07:15 WBC (4.0-10.5) K/mm3 RBC (4.1-5.4) M/mm3 Hgb (12.0-16.0) gm/dl Hct (35-47) % MCV (78-100) fl MCH (26-32) pg MCHC (32-36) g/dl RDW (11.5-14.0) % Plt Count (150-450) K/mm3 MPV (7.5-11.0) fl Gran % (36.0-66.0) % Eos # (Auto) (0-0.5) Absolute Lymphs (auto) (1.0-4.6) Absolute Monos (auto) (0.0-1.3) Lymphocytes % (24.0-44.0) % Monocytes % (0.0-12.0) % Eosinophils % (0.00-5.0) % Basophils % (0.0-0.4) % Absolute Granulocytes (1.4-6.9) Basophils # (0-0.4) Sodium (137-145) mmol/L Potassium (3.5-5.1) mmol/L Chloride (98-107) mmol/L Carbon Dioxide (22-30) mmol/L Anion Gap (5-15) MEQ/L BUN (7-17) mg/dL Creatinine (0.52-1.04) mg/dL Estimated GFR ML/MIN Glucose (74-106) mg/dL Lactic Acid 2.1 H (0.4-2.0) Calcium (8.4-10.2) mg/dL Magnesium (1.6-2.3) mg/dL Total Bilirubin (0.2-1.3) mg/dL AST (14-36) U/L ALT (0-35) U/L Alkaline Phosphatase (38-126) U/L Troponin I (0.000-0.034) ng/mL Serum Total Protein (6.3-8.2) g/dL Albumin (3.5-5.0) g/dL Urine Color YELLOW (YELLOW) Urine Appearance CLOUDY (CLEAR) Urine pH 8.0 (5-6) Ur Specific Divide 1.012 (1.005-1.025) Urine Protein NEGATIVE (Negative) Urine Ketones NEGATIVE (NEGATIVE) Urine Blood NEGATIVE (0-5) Vu/ul Urine Nitrite NEGATIVE (NEGATIVE) Urine Bilirubin NEGATIVE (NEGATIVE) Urine Urobilinogen 2 (0-1) mg/dL Ur Leukocyte Esterase NEGATIVE (NEGATIVE) Urine WBC (Auto) NONE (0-5) /HPF Urine RBC (Auto) 0-2 (0-2) /HPF U Epithel Cells (Auto) NONE (FEW) /HPF Urine Bacteria (Auto) NONE (NEGATIVE) /HPF Urine Culture Reflexed NO (NO) Urine Glucose NEGATIVE (NEGATIVE) mg/dL Urine Opiates Level NEGATIVE (NEGATIVE) Ur Methadone NEGATIVE (NEGATIVE) Urine Barbiturates NEGATIVE (NEGATIVE) Ur Phencyclidine (PCP) NEGATIVE (NEGATIVE) Urine Amphetamine NEGATIVE (NEGATIVE) U Benzodiazepine Level POSITIVE (NEGATIVE) Urine Cocaine NEGATIVE (NEGATIVE) Urine Marijuana (THC) NEGATIVE (NEGATIVE) - Progress Progress: improved, re-examined Air Movement: good Progress Note: 08/31/20 07:52 CAT scan of the head without contrast shows no acute intracranial process or mass. Counseled pt/family regarding: lab results, diagnosis, need for follow-up, rad results - Departure Departure Disposition: Home Clinical Impression: Headache, Dizziness Condition: Stable Critical Care Time: No Referrals: VALERIE BAUMAN, [Primary Care Provider] - Additional Instructions: Drink plenty of fluids. Take your medication as prescribed. Follow-up with your primary care physician on 09/02/2020 for further management. Prescriptions: Meclizine HCl 25 mg [Antivert 25 mg] 25 mg PO Q8H #10 tablet
[2020-08-31] MEDS ORDERED: MORPHINE SULFATE 4 MG INJ ONE (07:30)
[2020-08-31] MEDS ORDERED: MORPHINE SULFATE 4 MG INJ IV ONE (07:30)
[2020-08-31] MEDS ORDERED: Zofran 4 MG/2 ML VIAL ONE (07:30)
[2020-08-31] MEDS ORDERED: Sodium Chloride 0.9% 1000 ML 1,000 ML ONE (07:36)
[2020-08-31 07:43] LABS: Absolute Neutrophil Ct (ANC) 7.43 (1.4-6.9); BASOPHIL % 0.4 % (0.0-0.4); Basophil (Absolute #) 0.04 (0-0.4); Eosinophil % 1.5 % (0.00-5.0); Eosinophil (Absolute #) 0.15 (0-0.5); Hematocrit 44.3 % (35-47); Hemoglobin 14.4 gm/dl (12.0-16.0); Lymphocyte (Absolute #) 1.83 (1.0-4.6); Lymphocytes % 17.9 % (24.0-44.0); Mean Cell Volume 87.2 fl (78-100); Mean Corpuscular Hemoglobin 28.3 pg (26-32); Mean Corpuscular Hgb Concent. 32.5 g/dl (32-36); Mean Platelet Volume 9.4 fl (7.5-11.0); Monocyte (Absolute #) 0.77 (0.0-1.3); Monocytes % 7.5 % (0.0-12.0); Neutrophil % 72.7 % (36.0-66.0); Platelet Count 274 K/mm3 (150-450); Red Blood Count 5.08 M/mm3 (4.1-5.4); Red Cell Distribution Width 13.4 % (11.5-14.0); White Blood Count 10.2 K/mm3 (4.0-10.5)
[2020-08-31 07:55] LABS: Appearance CLOUDY (CLEAR); Bilirubin NEGATIVE (NEGATIVE); Blood NEGATIVE Ery/ul (0-5); Glucose NEGATIVE (NEGATIVE); Ketones NEGATIVE (NEGATIVE); Leukocyte Esterase NEGATIVE (NEGATIVE); Nitrite NEGATIVE (NEGATIVE); Protein,Urine Dip NEGATIVE (Negative); RBC 0-2 /HPF (0-2); Specific Gravity 1.012 (1.005-1.025); Urobilinogen 2 mg/dL (0-1)
[2020-08-31 08:02] LABS: ALBUMIN 4.4 g/dL (3.5-5.0); ALKALINE PHOSPHATASE 134 U/L (38-126); ANION GAP 13.6 MEQ/L (5-15); BLOOD UREA NITROGEN 8 mg/dL (7-17); CHLORIDE 101 mmol/L (98-107); Calcium 9.3 mg/dL (8.4-10.2); Carbon Dioxide 26 mmol/L (22-30); Creatinine 1 0.63 mg/dL (0.52-1.04); EST GLOMERULAR FILTRATION RATE > 60.0 ML/MIN; Glucose 133 mg/dL (74-106); Potassium 3.7 mmol/L (3.5-5.1); SGOT/AST 27 U/L (14-36); SGPT/ALT 18 U/L (0-35); SODIUM 137 mmol/L (137-145); Total Protein 7.5 g/dL (6.3-8.2)
[2020-08-31 08:31] LABS: Amphetamine,Urine NEGATIVE (NEGATIVE); Barbiturate,Urine NEGATIVE (NEGATIVE); Benzodiazepine,Urine POSITIVE (NEGATIVE); Cocaine,Urine NEGATIVE (NEGATIVE); Methadone,Urine NEGATIVE (NEGATIVE); Opiate,Urine NEGATIVE (NEGATIVE); PCP,Urine NEGATIVE (NEGATIVE); THC,Urine NEGATIVE (NEGATIVE)
[2020-08-31 08:58] VITALS: BP 131/58
[2020-08-31 09:09] VITALS: PULSE 94; O2SAT 99
[2020-08-31] MEDS ORDERED: MORPHINE SULFATE 2 MG INJ IV ONE (09:25)
[2020-08-31] MEDS ORDERED: MORPHINE SULFATE 2 MG INJ ONE (09:35)
--- NOTE | 2020-08-31 20:16 | XRAY ---
Indication: Right frontal headache, dizziness, and bilateral upper extremity weakness/numbness. Multiple contiguous axial images obtained through the head without contrast. Comparison: June 23, 2019. Again age-appropriate global atrophy, mild periventricular degenerative micro-ischemia bilaterally, and tiny remote lacunar infarct left internal capsule. No acute intracranial hemorrhage, abnormal extra-axial fluid collection, or mass effect. Fourth ventricle is midline without hydrocephalus. Bony calvarium intact. Visualized paranasal sinuses and mastoid air cells are clear. Impression: Continued nonacute senile brain with left internal capsule remote lacunar infarct. Comment: Preliminary interpretation was made by [facility]. No critical discrepancy.
== END 2020-08-31 09:51 | disposition home or self-care (01) ==
LOC: ED 07:01
DX: R51.9 Headache, unspecified (principal); R42 Dizziness and giddiness; I10 Essential (primary) hypertension; I25.10 Atherosclerotic heart disease of native coronary artery without angina pectoris; Z79.899 Other long term (current) drug therapy
CPT/HCPCS: 36415; 70450; 80053; 80307; 81001; 83605; 83735; 84484; 85025; 93005; 94760; 96374; 96375; 96376; 99284; J2270; J2405

== ENCOUNTER 2020-11-18 15:48 | Emergency (ER) | payer MEDICARE ==
--- NOTE | 2020-11-18 16:54 | ERPHSYRPT ---
- History of Present Illness Source: patient Exam Limitations: other (Poor historian) Patient Subjective Stated Complaint: Pt c/o of a migraine since this AM Triage Nursing Assessment: Pt was brought to the ER by her , hypertensive, rates head pain as 11/15, last migraine was a couple of months ago and before that over 40 years ago, N&V Physician History: 69 yo wf w L frontal FERREIRA since earlier today. Pain is 10 on scale and is worse w bright lights and movement. She has had N/V but denies trauma/focal weakness/fever/cough/coryza. Pt has an occasional h/o FERREIRA. Timing/Duration: today Quality: sharpness, stabbing Head Pain Location: frontal (L frontal) Severity of Pain-Max: severe Severity of Pain-Current: severe Recent Head Trauma: no recent headache/trauma Associated Symptoms: nausea/vomiting, sensitive to light, No confusion, No dizziness, No fatigue, No facial pain, No fever/chills, No flushing, No loss of consciousness, No nasal congestion, No nasal drainage, No neck pain, No numbness in legs/feet, No rash, No sweating, No scotoma, No seizures, No sinus infection, No speech problems, No stiff neck, No trouble walking, No vision changes, No visual disturbance, No weakness Previous symptoms: same symptoms as today (Remote h/o MGHA/States pain worse today) Allergies/Adverse Reactions: Sulfa (Sulfonamide Antibiotics) Allergy (Verified 11/18/20 16:24) Home Medications: Albuterol Sulfate [Proair Hfa] 2 puffs IH Q4H 05/28/17 [History] Alprazolam 0.5 mg PO BID 05/28/17 [History] Aspirin [Muriel Chewable Aspirin] 81 mg PO DAILY 05/28/17 [History] Atorvastatin Calcium 20 mg PO DAILY 05/28/17 [History] Nebivolol HCl 5 MG [Bystolic 5 MG] 10 mg PO DAILY 05/28/17 [History] PANTOPRAZOLE 40 mg Tablet [Protonix 40MG Tablet] 40 mg PO DAILY 05/28/17 [History] Quinapril HCl 10 mg [Accupril 10MG Tablet] 10 mg PO DAILY 05/28/17 [History] Amlodipine Besylate 2.5 mg PO BID 11/16/18 [History] Cholecalciferol (Vitamin D3) [Vitamin D3] 1,000 unit PO DAILY 11/16/18 [History] Cyanocobalamin (Vitamin B-12) [Vitamin B-12] 1,000 mcg PO DAILY 11/16/18 [History] Hx Tetanus, Diphtheria Vaccination/Date Given: No Hx Influenza Vaccination/Date Given: Yes () Hx Pneumococcal Vaccination/Date Given: Yes Travel Risk - International Travel Have you traveled outside of the country in past 3 weeks: No - Coronavirus Screening Are you exhibiting any of the following symptoms?: No Close contact with a COVID-19 positive Pt in past 14-21 Days: No - Vaccine Status Have you recieved a Covid-19 vaccination: Yes [place]: Moderna - Vaccination Dates Date of 2cond Vaccination (if applicable): 07/09/2020 - Review of Systems Constitutional: No Symptoms Eyes: No Symptoms, Photophobia Ears, Nose, & Throat: No Symptoms Respiratory: No Symptoms Cardiac: No Symptoms Abdominal/Gastrointestinal: No Symptoms Genitourinary Symptoms: No Symptoms Musculoskeletal: No Symptoms Skin: No Symptoms Neurological: No Symptoms, Headache Psychological: No Symptoms Endocrine: No Symptoms Hematologic/Lymphatic: No Symptoms Immunological/Allergic: No Symptoms - Past Medical History Pertinent Past Medical History: Yes Neurological History: No Pertinent History, Migraines ENT History: No Pertinent History Cardiac History: Coronary Artery Disease, Hypertension, Myocardial Infarction ([place]) Respiratory History: No Pertinent History Endocrine Medical History: No Pertinent History Musculoskeletal History: No Pertinent History GI Medical History: No Pertinent History History: No Pertinent History Psycho-Social History: No Pertinent History Female Reproductive Disorders: No Pertinent History Other Medical History: poor historian - Past Surgical History Past Surgical History: Yes Neuro Surgical History: No Pertinent History Cardiac: Cardiac Catheterization, Cardiac Stent Respiratory: No Pertinent History Gastrointestinal: Appendectomy, Cholecystectomy Genitourinary: No Pertinent History Musculoskeletal: No Pertinent History Female Surgical History: Hysterectomy Other Surgical History: slow to wake from anesthesia, 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 - Social History Smoking Status: Never smoker Exposure to second hand smoke: No Drug Use: none Patient Lives Alone: No Significant Family History: no pertinent family hx - Female History Hx Now: No - Nursing Vital Signs Nursing Vital Signs: Initial Vital Signs Temperature 98.2 F 11/18/20 16:17 Pulse Rate 73 11/18/20 16:17 Blood Pressure 151/65 11/18/20 16:17 O2 Sat by Pulse Oximetry 94 L 11/18/20 16:17 Pain Scale Pain Intensity 4 Hypertensive - Physical Exam General Appearance: no apparent distress Eye Exam: PERRL/EOMI, eyes nml inspection Ears, Nose, Throat Exam: normal ENT inspection, TMs normal, pharynx normal, moist mucous membranes, No TM abnormal (R), No TM abnormal (L) Neck Exam: normal inspection, non-tender, supple, full range of motion, No meningismus, No mass, No Brudzinski, No Kernig's, No carotid bruit Respiratory Exam: normal breath sounds, lungs clear, airway intact, No respiratory distress Cardiovascular Exam: regular rate/rhythm, normal heart sounds, normal peripheral pulses, murmur Gastrointestinal/Abdominal Exam: soft, normal bowel sounds, tenderness Back Exam: normal inspection, normal range of motion, No CVA tenderness, No vertebral tenderness Extremity Exam: normal inspection, normal range of motion Mental Status Exam: alert, oriented x 3, 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 Exam: normal hearing, normal speech, PERRL, abnormal eye position, No abnormal gag reflex, No abnormal pupil position, No abnormal speech, No facial asymmetry, No facial droop, No facial paresthesias, No facial weakness Coordination/Gait Exam: normal gait, normal cerebellar function, negative Romberg's sign Motor/Sensory Exam: no motor deficit, no sensory deficit, no pronator drift, negative Babinski's sign, No positive Babinski's sign, No pronator drift (R), No pronator drift (L), No sensory deficit DTR Exam: bicep (R): 2+, bicep (L): 2+, knee (R): 2+, knee (L): 2+ Skin Exam: normal color, warm, dry, No rash Lymphatic Exam: No adenopathy SpO2 Interpretation: normal SpO2: 94 O2 Delivery: Room Air - CT Exams Head CT Interpretation: Discussed w/radiologist (CT head nithing acute per Rad) Ordered Tests: Active Orders 24 hr Category Date Time Status HEAD WITHOUT CONTRAST [CT] Stat Exams 11/18/20 16:50 Completed Medication Summary Discontinued Medications Generic Name Dose Route Start Last Admin Trade Name Freq PRN Reason Stop Dose Admin Hydromorphone HCl 0.5 mg 11/18/20 18:04 11/18/20 18:25 Hydromorphone 1 Mg/Ml Injection IV 11/18/20 18:05 0.5 mg STAT ONE Administration Hydromorphone HCl Confirm 11/18/20 18:19 Hydromorphone 1 Mg/Ml Injection Administered 11/18/20 18:20 Dose 1 mg .ROUTE .STK-MED ONE Prochlorperazine Edisylate 10 mg 11/18/20 18:06 11/18/20 18:25 Compazine 10 Mg/2 Ml IM 11/18/20 18:07 10 mg STAT ONE Administration Prochlorperazine Edisylate Confirm 11/18/20 18:20 Compazine 10 Mg/2 Ml Administered 11/18/20 18:21 Dose 10 mg .ROUTE .STK-MED ONE - Progress Progress Note: 11/18/20 18:07 0.5 IM Dilaudid/10mg IM Compazine Counseled pt/family regarding: diagnosis, need for follow-up, rad results - Departure Departure Disposition: Home Clinical Impression: Migraine headache Condition: Stable Critical Care Time: No Referrals: WARREN LOCKHART MD [Primary Care Provider] - Instructions: Headache, Adult (DC) Additional Instructions: Return to ER for increasing pain/Focal weakness/Vomiting more than 4 times in 1 hour
--- NOTE | 2020-11-18 17:31 | XRAY ---
Indication: Left orbital headache. Multiple contiguous axial images obtained without contrast. Comparison: August 31, 2020. Again age-appropriate global atrophy, mild periventricular degenerative microischemia bilaterally, and tiny remote lacunar infarct left internal capsule. No acute intracranial hemorrhage, abnormal extra-axial fluid collection, or mass effect. Fourth ventricle is midline without hydrocephalus. Bony calvarium intact. Visualized paranasal sinuses and mastoid air cells are clear. Impression: Continued nonacute senile brain with left internal capsule remote lacunar infarct.
[2020-11-18] MEDS ORDERED: Hydromorphone 1 mg/ml Injection IV ONE (18:04)
[2020-11-18] MEDS ORDERED: Compazine 10 MG/2 ML IM ONE (18:06)
[2020-11-18] MEDS ORDERED: Hydromorphone 1 mg/ml Injection ONE (18:19)
[2020-11-18] MEDS ORDERED: Compazine 10 MG/2 ML ONE (18:20)
[2020-11-18 20:05] VITALS: BP 136/64; PULSE 74
[2020-11-18 20:32] VITALS: O2SAT 94
== END 2020-11-18 19:40 | disposition home or self-care (01) ==
LOC: ED 15:48
DX: G43.909 Migraine, unspecified, not intractable, without status migrainosus (principal); R11.2 Nausea with vomiting, unspecified; Z79.899 Other long term (current) drug therapy
CPT/HCPCS: 70450; 96372; 99284; J1170

== ENCOUNTER 2023-12-04 17:00 | Emergency (ER) | payer MEDICARE ==
[2023-12-04 17:17] VITALS: RESP 18; TEMP 97.9
[2023-12-04] MEDS ORDERED: TORAdol 30 mg Injection ONE (17:32)
[2023-12-04] MEDS ORDERED: Compazine 10 MG/2 ML ONE (17:32)
--- NOTE | 2023-12-04 17:32 | ERPHSYRPT ---
- History of Present Illness Time Seen by Provider: 12/04/23 17:27 Source: patient Exam Limitations: no limitations Patient Subjective Stated Complaint: pt reports severe left sided headache behind her eye and sinus pain starting at noon today. pt reports nausea and vomiting and one episode of diarrhea today. pt reports when she opens her eyes her pain and nausea is worse. Triage Nursing Assessment: pt is aox3, appears in pain, pt covering her left eye during most of exam, pt is photosensitive, pupils perrl, afebrile, resps easy and non labored, cap refill < 3 seconds, pt radial pulses strong and equal, pt skin pink warm dry. pt ambulated to [facility] area with no difficulty. Physician History: pt reports severe left sided headache behind her eye and sinus pain starting at noon today. pt reports nausea and vomiting and one episode of diarrhea today. pt reports when she opens her eyes her pain and nausea is worse. Patient has Hx of migraine in her younger days. Lau left side sinus problems for 2-3 days so She took sinus medicine in AM and by Noon her headache started. Timing/Duration: today Quality: throbbing Head Pain Location: frontal Severity of Pain-Max: moderate Severity of Pain-Current: moderate Recent Head Trauma: no recent headache/trauma Modifying Factors: Improves With: exposure to light Associated Symptoms: sinus infection, sensitive to light, visual disturbance Previous symptoms: no prior history Allergies/Adverse Reactions: Sulfa (Sulfonamide Antibiotics) Allergy (Verified 12/04/23 17:17) Home Medications: ALPRAZolam [Alprazolam] 0.5 mg PO BID 05/28/17 [History] Atorvastatin Calcium 40 mg PO DAILY 05/28/17 [History] Nebivolol HCl 5 MG [Bystolic 5 MG] 10 mg PO DAILY 05/28/17 [History] PANTOPRAZOLE 40 mg Tablet [Protonix 40MG Tablet] 40 mg PO DAILY 05/28/17 [History] Amlodipine Besylate 2.5 mg PO BID 11/16/18 [History] Cholecalciferol (Vitamin D3) [Vitamin D3] 1,000 unit PO DAILY 11/16/18 [History] Aspirin EC 81 mg [Ecotrin 81 mg] 81 mg PO DAILY 12/04/23 [History] Calcium Carbonate [Calcium] 500 mg PO DAILY 12/04/23 [History] Lisinopril 10 mg [Zestril 10 MG] 10 mg PO DAILY 12/04/23 [History] Ubidecarenone [Co Q-10] 200 mg PO DAILY 12/04/23 [History] Hx Tetanus, Diphtheria Vaccination/Date Given: No Hx Influenza Vaccination/Date Given: Yes () Hx Pneumococcal Vaccination/Date Given: Yes Travel Risk - International Travel Have you traveled outside of the country in past 3 weeks: No - Emerging Infectious Disease Symptoms: Diarrhea, Headaches/Body Aches/ - Review of Systems Constitutional: No Fever, No Chills Eyes: No Symptoms Ears, Nose, & Throat: Sinus Drainage Respiratory: No Cough, No Dyspnea Cardiac: No Chest Pain, No Edema, No Syncope Abdominal/Gastrointestinal: No Abdominal Pain, No Nausea, No Vomiting, No Diarrhea Genitourinary Symptoms: No Dysuria Musculoskeletal: No Back Pain, No Neck Pain Skin: No Rash Neurological: Headache, No Dizziness, No Focal Weakness, No Sensory Changes Psychological: No Symptoms Endocrine: No Symptoms All Other Systems: Reviewed and Negative - Past Medical History Pertinent Past Medical History: Yes Neurological History: No Pertinent History, Migraines ENT History: No Pertinent History Cardiac History: Coronary Artery Disease, Hypertension, Myocardial Infarction (ND) Respiratory History: No Pertinent History Endocrine Medical History: No Pertinent History Musculoskeletal History: No Pertinent History GI Medical History: No Pertinent History History: No Pertinent History Psycho-Social History: No Pertinent History Female Reproductive Disorders: No Pertinent History Other Medical History: poor historian - Past Surgical History Past Surgical History: Yes Neuro Surgical History: No Pertinent History Cardiac: Cardiac Catheterization, Cardiac Stent Respiratory: No Pertinent History Gastrointestinal: Appendectomy, Cholecystectomy Genitourinary: No Pertinent History Musculoskeletal: No Pertinent History Female Surgical History: Hysterectomy Other Surgical History: slow to wake from anesthesia, 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 Significant Family History: no pertinent family hx - Social History Smoking Status: Never smoker Exposure to second hand smoke: No Drug Use: none Patient Lives Alone: No - Social Determinants of Health Will the patient participate in the screening: Yes Do you worry about a steady place to live?: No Do you have any problems with any of the following?: No known problems In the past 12 months,have you had to go without utilities?: No Transportation Issues: No Has anyone in your support network made you feel unsafe?: No Have you or anyone in your house had to go without enough: No - Nursing Vital Signs Nursing Vital Signs: Initial Vital Signs Temperature 97.9 F 12/04/23 17:08 Pulse Rate 84 12/04/23 17:08 Respiratory Rate 18 12/04/23 17:08 Blood Pressure 157/69 12/04/23 17:08 O2 Sat by Pulse Oximetry 95 12/04/23 17:08 Pain Scale Pain Intensity 9 - Physical Exam General Appearance: no apparent distress Eye Exam: PERRL/EOMI Ears, Nose, Throat Exam: normal ENT inspection, moist mucous membranes Neck Exam: normal inspection, supple, full range of motion, No meningismus Respiratory Exam: normal breath sounds, lungs clear Cardiovascular Exam: regular rate/rhythm, normal heart sounds Gastrointestinal/Abdominal Exam: soft, No tenderness, No distention Back Exam: normal inspection, normal range of motion Mental Status Exam: alert, oriented x 3, cooperative rejector Exam: normal speech, PERRL, No facial droop Coordination/Gait Exam: normal cerebellar function Motor/Sensory Exam: no motor deficit, no sensory deficit Skin Exam: normal color, warm, dry, No rash SpO2: 95 - Course Nursing assessment & vital signs reviewed: Yes Ordered Tests: Medication Summary Discontinued Medications Generic Name Dose Route Start Last Admin Trade Name Sendy PRN Reason Stop Dose Admin Ketorolac Tromethamine 60 mg 12/04/23 17:25 12/04/23 17:34 Ketorolac Tromethamine 30 Mg/Ml Inj IM 12/04/23 17:26 60 mg STAT ONE Administration Ketorolac Tromethamine Confirm 12/04/23 17:32 Ketorolac Tromethamine 30 Mg/Ml Inj Administered 12/04/23 17:33 Dose 60 mg .ROUTE .STK-MED ONE Ondansetron HCl 4 mg 12/04/23 18:09 12/04/23 18:18 Ondansetron Hcl 4 Mg/2 Ml Vial IM 12/04/23 18:10 4 mg STAT ONE Administration Ondansetron HCl Confirm 12/04/23 18:17 Ondansetron Hcl 4 Mg/2 Ml Vial Administered 12/04/23 18:18 Dose 4 mg .ROUTE .STK-MED ONE Prochlorperazine Edisylate 10 mg 12/04/23 17:25 12/04/23 17:34 Prochlorperazine Edisylate 10 Mg/2 Ml Vial IM 12/04/23 17:26 10 mg STAT ONE Administration Prochlorperazine Edisylate Confirm 12/04/23 17:32 Prochlorperazine Edisylate 10 Mg/2 Ml Vial Administered 12/04/23 17:33 Dose 10 mg .ROUTE .STK-MED ONE - Progress Progress: improved Counseled pt/family regarding: diagnosis, need for follow-up Medical Desision Making - Independent Historian Additional History obtained from: Spouse - Diagnostic Testing Diagnostic test were ordered, analyzed, and reviewed by me: No - Departure Departure Disposition: Home Clinical Impression: Migraine Qualifiers: Migraine type: unspecified Status migrainosus presence: without status migrainosus Intractability: not intractable Qualified Code(s): G43.909 - Migraine, unspecified, not intractable, without status migrainosus Condition: Stable Critical Care Time: No Referrals: WARREN LOCKHART MD [Primary Care Provider] - Follow up/PCP as directed Instructions: Headache, Adult (DC), Migraine in adults Additional Instructions: We are sending 2 tablets of indomethacin which you are going to use it for your headache. 1 tablet of 25 mg you will take it tonight with food and if headache still persist then you can take another 1 in the morning with food. Your prescription has been sent to the pharmacy. Discharge/Care Plan ANGEL CHAPMAN was seen on 12/04/23 in the Emergency Room. The patient was counseled regarding Diagnosis,Lab results, Imaging studies, need for follow up and when to return to the Emergency Room. Prescriptions given: Discharge Note I have spoken with the patient and/or caregivers. I have explained the patient's condition, diagnosis and treatment plan based on the information available to me at this time. I have answered the patient's and/or caregiver's questions and addressed any concerns. The patient and/or caregivers have as good understanding of the patient's diagnosis, condition and treatment plan as can be expected at this point. The vital signs have been stable. The patient's condition is stable and appropriate for discharge from the emergency department. The patient will pursue further outpatient evaluation with the primary care physician or other designated or consulting physician as outlined in the discharge instructions. The patient and/or caregivers are agreeable to this plan of care and follow-up instructions have been explained in detail. The patient and/or caregivers have received these instruction. The patient/and or caregivers are aware that any significant change in condition or worsening of symptoms should prompt an immediate return to this or the closest emergency department or call 911. ANGEL CHAPMAN was seen on 12/04/23 n the Emergency Room. At that time you were treated for an emergent condition, during your visit Laboratory, Radiology and/or other procedures may have been ordered. It is very important that you follow-up with your Primary Care Physician WARREN LOCKHART within the next 24-48 hours to review your Emergency Room visit and the final results of testing that was ordered. Some test results such as Urine Cultures, Blood Cultures, and other cultures if ordered will not be finalized for 24-48 hours. If you do not have a Primary Care Provider please call the medical records department at [phone] ext [phone] to obtain a copy of your results or you may sign into our patient portal to obtain these results by visiting us @ [email or web address] and completing the following steps: 1. Click on the Patient Portal link 2. Click the Patient Self Enrollment Link to complete the enrollment form and entering your 3. Once the enrollment form is completed you will receive an email with a temporary ID and password at the email address you provided. 4. Next choose a user name and password. Your user name must be at least 4 characters long and your password must be at least 4 characters long. 5. Choose a security question from the list and provide your answer to the question. If you already have signed into the Health Portal you may access your Health Care Information 28/09 by the following steps: 1. Login to our website @ [email or web address] 2. Enter your original user name and password. FAQS The [facility] Health Portal is an online tool that contains your Lab Results, Radiology Reports, Visit History, Discharge Instructions and Health Summary Lab and Radiology Results will not be available for 72 hours on the portal. The Portal is a secure site, passwords are encryted and URLs are re-written so they cannot be copied and pasted. You and authorized family members are the only ones who can access your Portal. Also there is a timeout feature that protects your information if you leave the Portal page open. If you have technical difficulty please use the Contact Us link on the page this will allow you to submit any questions you have regarding the Portal or you may contact the Medical Record Department at [phone] ext [phone]. Prescriptions: Indomethacin 25 mg [Indocin 25 MG] 25 mg PO TID #20 cap
[2023-12-04] MEDS: TORAdol 30 mg Injection IM ONE (17:34)
[2023-12-04] MEDS: Compazine 10 MG/2 ML IM ONE (17:34)
[2023-12-04] MEDS ORDERED: Zofran 4 MG/2 ML VIAL ONE (18:17)
[2023-12-04] MEDS: Zofran 4 MG/2 ML VIAL IM ONE (18:18)
[2023-12-04] MEDS ORDERED: Indocin 25 MG ONE (18:47)
[2023-12-04 18:51] VITALS: BP 140/62; PULSE 74; O2SAT 94
[2023-12-04] MEDS: Indocin 25 MG PO ONE (18:51)
== END 2023-12-04 18:57 | disposition home or self-care (01) ==
LOC: ED 17:00
DX: G43.909 Migraine, unspecified, not intractable, without status migrainosus (principal); R11.2 Nausea with vomiting, unspecified; I10 Essential (primary) hypertension; Z79.899 Other long term (current) drug therapy
CPT/HCPCS: 96372; 99283; J1885; J2405; A9270-GY

== ENCOUNTER 2024-11-15 09:07 | Emergency (ER) | payer MEDICARE ==
[2024-11-15 09:31] VITALS: TEMP 97.4
--- NOTE | 2024-11-15 09:34 | ERPHSYRPT ---
- History of Present Illness Time Seen by Provider: 11/15/24 09:14 Source: patient Exam Limitations: no limitations Patient Subjective Stated Complaint: patient states she woke up this morning short of breath and having headache on left side of head. Triage Nursing Assessment: pt presented to ED driven by said she woke up this morning short of breath with a headache to left adventist developing later in the day. she is alert and orientedx4, able to ambulate but feels very weak and tired. she says headache has progressively gotten worse throughout the day. she also said she did cough up some mucus this morning clear , she took no medications this morning and she is having intermittant nausea. skin warm dry and itnact, pupils [id number] Physician History: 73-year-old female presents to the emergency room with shortness of breath that woke her up this morning she reports she has been coughing with positive mucus production she also reports she is to have a headache with the left side of her face feels like she is been swimming and has fluid buildup and pressure denies any loss of motor or sensation patient reports she has had no chest pain denies any nausea vomiting diarrhea she reports she went to bed feeling well Timing/Duration: today Activities at Onset: none Severity of Dyspnea-Max: mild Severity of Dyspnea-Current: none Possible Cause: no prior episodes Modifying Factors: Improves With: nothing Associated Symptoms: intermittent Allergies/Adverse Reactions: Sulfa (Sulfonamide Antibiotics) Allergy (Verified 12/04/23 17:17) Home Medications: ALPRAZolam [Alprazolam] 0.5 mg PO BID 05/28/17 [History] Atorvastatin Calcium 40 mg PO DAILY 05/28/17 [History] Nebivolol HCl 5 MG [Bystolic 5 MG] 10 mg PO DAILY 05/28/17 [History] PANTOPRAZOLE 40 mg Tablet [Protonix 40MG Tablet] 40 mg PO DAILY 05/28/17 [History] Amlodipine Besylate 2.5 mg PO BID 11/16/18 [History] Cholecalciferol (Vitamin D3) [Vitamin D3] 1,000 unit PO DAILY 11/16/18 [History] Aspirin EC 81 mg [Ecotrin 81 mg] 81 mg PO DAILY 12/04/23 [History] Calcium Carbonate [Calcium] 500 mg PO DAILY 12/04/23 [History] Lisinopril 10 mg [Zestril 10 MG] 10 mg PO DAILY 12/04/23 [History] Ubidecarenone [Co Q-10] 200 mg PO DAILY 12/04/23 [History] Hx Tetanus, Diphtheria Vaccination/Date Given: No Hx Influenza Vaccination/Date Given: Yes () Hx Pneumococcal Vaccination/Date Given: Yes Travel Risk - International Travel Have you traveled outside of the country in past 3 weeks: No - Emerging Infectious Disease Are you exhibiting symptoms associated with any current EIDs: No Symptoms: Diarrhea, Headaches/Body Aches/ - Review of Systems Constitutional: No Fever, No Chills Eyes: No Symptoms Ears, Nose, & Throat: No Symptoms Respiratory: Dyspnea, No Cough Cardiac: No Chest Pain, No Edema, No Syncope Abdominal/Gastrointestinal: No Abdominal Pain, No Nausea, No Vomiting, No Diarrhea Genitourinary Symptoms: No Dysuria Musculoskeletal: No Back Pain, No Neck Pain Skin: No Rash Neurological: Headache, No Dizziness, No Focal Weakness, No Sensory Changes Psychological: No Symptoms Endocrine: No Symptoms All Other Systems: Reviewed and Negative - Past Medical History Pertinent Past Medical History: Yes Neurological History: No Pertinent History, Migraines ENT History: No Pertinent History Cardiac History: Coronary Artery Disease, Hypertension, Myocardial Infarction (OK) Respiratory History: No Pertinent History Endocrine Medical History: No Pertinent History Musculoskeletal History: No Pertinent History GI Medical History: No Pertinent History History: No Pertinent History Psycho-Social History: No Pertinent History Female Reproductive Disorders: No Pertinent History Other Medical History: poor historian - Past Surgical History Past Surgical History: Yes Neuro Surgical History: No Pertinent History Cardiac: Cardiac Catheterization, Cardiac Stent Respiratory: No Pertinent History Gastrointestinal: Appendectomy, Cholecystectomy Genitourinary: No Pertinent History Musculoskeletal: No Pertinent History Female Surgical History: Hysterectomy Other Surgical History: slow to wake from anesthesia, 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 Significant Family History: no pertinent family hx - Social History Smoking Status: Never smoker Exposure to second hand smoke: No Drug Use: none - Social Determinants of Health Will the patient participate in the screening: Yes Do you worry about a steady place to live?: No Do you have any problems with any of the following?: No known problems In the past 12 months,have you had to go without utilities?: No Transportation Issues: No Has anyone in your support network made you feel unsafe?: No Have you or anyone in your house had to go w/o enough food: No - Nursing Vital Signs Nursing Vital Signs: Initial Vital Signs Pulse Rate 77 11/15/24 09:22 Respiratory Rate 26 H 11/15/24 09:22 Blood Pressure 171/68 11/15/24 09:22 O2 Sat by Pulse Oximetry 98 11/15/24 09:22 Pain Scale Pain Intensity 10 - Physical Exam General Appearance: no apparent distress, alert Eye Exam: PERRL/EOMI Neck Exam: normal inspection, supple Cardiovascular/Chest Exam: normal heart sounds, regular rate/rhythm Abdominal/Gastrointestinal Exam: soft, No tenderness, No distention, No mass Extremity Exam: non-tender, normal range of motion, normal inspection, no calf tenderness, no pedal edema Neurologic Exam: alert, oriented x 3, cooperative, health spa manager II-XII nml as tested, sensation nml, No motor deficits Skin Exam: normal color, warm, No dry SpO2 Interpretation: normal SpO2: 98 - Course Nursing assessment & vital signs reviewed: Yes EKG Interpreted by Me: RATE (73), Sinus Rhythm, Left Estelline Deviation, Non- specific ST Changes, Other (no STEMI) Ordered Tests: Active Orders 24 hr Category Date Time Status Supervisor Line Department STAT Care 11/15/24 09:30 Completed EKG-ER Only STAT Care 11/15/24 09:30 Completed IV Insertion STAT Care 11/15/24 09:30 Completed Pulse Oximetry (ED) STAT Care 11/15/24 09:30 Completed CHEST 1 VIEW (PORTABLE) Stat Exams 11/15/24 09:29 Completed HEAD WITHOUT CONTRAST [CT] Stat Exams 11/15/24 09:33 Completed CBC W DIFF Stat Lab 11/15/24 09:35 Completed CMP Stat Lab 11/15/24 09:35 Completed D-DIMER QUANTITATIVE Stat Lab 11/15/24 09:35 Completed MAGNESIUM Stat Lab 11/15/24 09:35 Completed NT PRO BNPII Stat Lab 11/15/24 09:30 Completed PROTIME WITH INR Stat Lab 11/15/24 09:35 Completed PTT Stat Lab 11/15/24 09:35 Completed TROPONIN Q3H Lab 11/15/24 09:30 Completed TROPONIN Q3H Lab 11/15/24 12:50 Completed TROPONIN Q3H Lab 11/15/24 15:05 Completed UA W/RFX UR CULTURE Stat Lab 11/15/24 09:30 Completed Medication Summary Discontinued Medications Generic Name Dose Route Start Last Admin Trade Name Sendy PRN Reason Stop Dose Admin Diphenhydramine HCl 50 mg 11/15/24 10:31 11/15/24 10:34 Diphenhydramine Hcl 50 Mg/Ml Vial IV 11/15/24 10:32 50 mg STAT ONE Administration Diphenhydramine HCl Confirm 11/15/24 10:33 Diphenhydramine Hcl 50 Mg/Ml Vial Administered 11/15/24 10:34 Dose 50 mg .ROUTE .STK-MED ONE Sodium Chloride 500 mls @ 500 mls/hr 11/15/24 09:32 11/15/24 12:11 Sodium Chloride 0.9% 500 Ml IV 11/15/24 10:31 Infused .Q1H ONE Infusion Sodium Chloride Confirm 11/15/24 09:43 Sodium Chloride 0.9% 500 Ml Administered 11/15/24 09:44 Dose 500 mls @ ud IV .STK-MED ONE Metoclopramide HCl 10 mg 11/15/24 10:31 11/15/24 10:34 Metoclopramide Hcl 10 Mg/2 Ml Vial IV 11/15/24 10:32 10 mg STAT ONE Administration Metoclopramide HCl Confirm 11/15/24 10:33 Metoclopramide Hcl 10 Mg/2 Ml Vial Administered 11/15/24 10:34 Dose 10 mg .ROUTE .STK-MED ONE Morphine Sulfate 4 mg 11/15/24 11:37 11/15/24 12:03 Morphine Sulfate 4 Mg/Ml Injection IV 11/15/24 11:38 4 mg STAT ONE Administration Morphine Sulfate Confirm 11/15/24 12:01 Morphine Sulfate 4 Mg/Ml Injection Administered 11/15/24 12:02 Dose 4 mg .ROUTE .STK-MED ONE Ondansetron HCl 4 mg 11/15/24 11:37 11/15/24 12:03 Ondansetron Hcl 4 Mg/2 Ml Vial IV 11/15/24 11:38 4 mg STAT ONE Administration Ondansetron HCl Confirm 11/15/24 12:01 Ondansetron Hcl 4 Mg/2 Ml Vial Administered 11/15/24 12:02 Dose 4 mg .ROUTE .STK-MED ONE Lab/Rad Data: Laboratory Result Diagrams 11/15/24 09:35 11/15/24 09:35 Laboratory Results 11/15/24 11/15/24 11/15/24 Range/Units 15:05 12:50 10:15 WBC (3.98-10.04) x10^3/uL RBC (3.93-5.22) x10^6/uL Hgb (11.2-15.7) g/dL Hct (34.1-44.9) % MCV (79.4-94.8) fL MCH (25.6-32.2) pg MCHC (32.2-35.5) g/dL RDW (11.7-14.4) % Plt Count (182-369) x10^3/uL MPV (9.4-12.3) fL Gran % (34.0-71.1) % Immature Gran % (Auto) (0.001-0.429) % Nucleat RBC Rel Count (0.00-0.2) % Eos # (Auto) (0.04-0.36) x10^3/uL Immature Gran # (Auto) (0.001-0.031) x10^3u/L Absolute Lymphs (auto) (1.18-3.74) x10^3/uL Absolute Monos (auto) (0.24-0.86) x10^3/uL Absolute Nucleated RBC (0.00-0.012) x10^3u/L Lymphocytes % (19.3-51.7) % Monocytes % (4.7-12.5) % Eosinophils % (0.7-5.8) % Basophils % (0.1-1.2) % Absolute Granulocytes (1.56-6.13) x10^3/uL Basophils # (0.01-0.08) x10^3/uL PT (9.4-12.5) SECONDS INR (0.8-3.0) APTT (25.1-36.5) SECONDS D-Dimer (0.0-0.50) mg/L Sodium (135-145) mmol/L Potassium (3.5-5.1) mmol/L Chloride (98-107) mmol/L Carbon Dioxide (22-30) mmol/L Anion Gap (5-15) MEQ/L BUN (7-17) mg/dL Creatinine (0.52-1.04) mg/dL Estimated GFR ML/MIN Glucose (74-106) mg/dL Calcium (8.4-10.2) mg/dL Magnesium (1.6-2.3) mg/dL Total Bilirubin (0.2-1.3) mg/dL AST (14-36) U/L ALT (0-35) U/L Alkaline Phosphatase (38-126) U/L Troponin I < 0.012 < 0.012 (0.000-0.033) ng/mL NT-Pro-B Natriuret Pep (<300) pg/mL Serum Total Protein (6.3-8.2) g/dL Albumin (3.5-5.0) g/dL Urine Color (Yellow) Urine Appearance (Clear) Urine pH (4.6-8.0) Ur Specific [place] (1.005-1.030) Urine Protein (Negative) Urine Glucose (UA) (Negative) mg/dL Urine Ketones (Negative) Urine Blood (Negative) Urine Nitrite (Negative) Urine Bilirubin (Negative) Urine Urobilinogen (0.2) mg/dL Ur Leukocyte Esterase (Negative) U Hyaline Cast (Auto) (0-2) /LPF Urine Microscopic RBC (0-5) /HPF Urine Microscopic WBC (0-5) /HPF Ur Epithelial Cells (None Seen) /HPF Urine Bacteria (None Seen) /HPF Urine Culture Reflexed (NO) Influenza Type A Ag NEGATIVE (NEGATIVE) Influenza Type B Ag NEGATIVE (NEGATIVE) RSV (PCR) NEGATIVE (NEGATIVE) SARS-CoV-2 (PCR) NEGATIVE (NEGATIVE) 11/15/24 11/15/24 11/15/24 Range/Units 09:35 09:35 09:35 WBC 8.0 (3.98-10.04) x10^3/uL RBC 5.18 (3.93-5.22) x10^6/uL Hgb 14.9 (11.2-15.7) g/dL Hct 45.2 H (34.1-44.9) % MCV 87.3 (79.4-94.8) fL MCH 28.8 (25.6-32.2) pg MCHC 33.0 (32.2-35.5) g/dL RDW 13.0 (11.7-14.4) % Plt Count 280 (182-369) x10^3/uL MPV 9.3 L (9.4-12.3) fL Gran % 54.5 (34.0-71.1) % Immature Gran % (Auto) 0.4 (0.001-0.429) % Nucleat RBC Rel Count 0.0 (0.00-0.2) % Eos # (Auto) 0.25 (0.04-0.36) x10^3/uL Immature Gran # (Auto) 0.03 (0.001-0.031) x10^3u/L Absolute Lymphs (auto) 2.65 (1.18-3.74) x10^3/uL Absolute Monos (auto) 0.63 (0.24-0.86) x10^3/uL Absolute Nucleated RBC 0.00 (0.00-0.012) x10^3u/L Lymphocytes % 33.3 (19.3-51.7) % Monocytes % 7.9 (4.7-12.5) % Eosinophils % 3.1 (0.7-5.8) % Basophils % 0.8 (0.1-1.2) % Absolute Granulocytes 4.33 (1.56-6.13) x10^3/uL Basophils # 0.06 (0.01-0.08) x10^3/uL PT 10.3 (9.4-12.5) SECONDS INR 0.94 (0.8-3.0) APTT 25.4 (25.1-36.5) SECONDS D-Dimer 0.44 (0.0-0.50) mg/L Sodium 139 (135-145) mmol/L Potassium 3.7 (3.5-5.1) mmol/L Chloride 100 (98-107) mmol/L Carbon Dioxide 25 (22-30) mmol/L Anion Gap 17.2 H (5-15) MEQ/L BUN 10 (7-17) mg/dL Creatinine 0.68 (0.52-1.04) mg/dL Estimated GFR 90.8 ML/MIN Glucose 122 H (74-106) mg/dL Calcium 9.7 (8.4-10.2) mg/dL Magnesium 2.0 (1.6-2.3) mg/dL Total Bilirubin 1.10 (0.2-1.3) mg/dL AST 33 (14-36) U/L ALT 24 (0-35) U/L Alkaline Phosphatase 140 H (38-126) U/L Troponin I (0.000-0.033) ng/mL NT-Pro-B Natriuret Pep (<300) pg/mL Serum Total Protein 8.6 H (6.3-8.2) g/dL Albumin 4.9 (3.5-5.0) g/dL Urine Color (Yellow) Urine Appearance (Clear) Urine pH (4.6-8.0) Ur Specific [place] (1.005-1.030) Urine Protein (Negative) Urine Glucose (UA) (Negative) mg/dL Urine Ketones (Negative) Urine Blood (Negative) Urine Nitrite (Negative) Urine Bilirubin (Negative) Urine Urobilinogen (0.2) mg/dL Ur Leukocyte Esterase (Negative) U Hyaline Cast (Auto) (0-2) /LPF Urine Microscopic RBC (0-5) /HPF Urine Microscopic WBC (0-5) /HPF Ur Epithelial Cells (None Seen) /HPF Urine Bacteria (None Seen) /HPF Urine Culture Reflexed (NO) Influenza Type A Ag (NEGATIVE) Influenza Type B Ag (NEGATIVE) RSV (PCR) (NEGATIVE) SARS-CoV-2 (PCR) (NEGATIVE) 11/15/24 11/15/24 Range/Units 09:30 09:30 WBC (3.98-10.04) x10^3/uL RBC (3.93-5.22) x10^6/uL Hgb (11.2-15.7) g/dL Hct (34.1-44.9) % MCV (79.4-94.8) fL MCH (25.6-32.2) pg MCHC (32.2-35.5) g/dL RDW (11.7-14.4) % Plt Count (182-369) x10^3/uL MPV (9.4-12.3) fL Gran % (34.0-71.1) % Immature Gran % (Auto) (0.001-0.429) % Nucleat RBC Rel Count (0.00-0.2) % Eos # (Auto) (0.04-0.36) x10^3/uL Immature Gran # (Auto) (0.001-0.031) x10^3u/L Absolute Lymphs (auto) (1.18-3.74) x10^3/uL Absolute Monos (auto) (0.24-0.86) x10^3/uL Absolute Nucleated RBC (0.00-0.012) x10^3u/L Lymphocytes % (19.3-51.7) % Monocytes % (4.7-12.5) % Eosinophils % (0.7-5.8) % Basophils % (0.1-1.2) % Absolute Granulocytes (1.56-6.13) x10^3/uL Basophils # (0.01-0.08) x10^3/uL PT (9.4-12.5) SECONDS INR (0.8-3.0) APTT (25.1-36.5) SECONDS D-Dimer (0.0-0.50) mg/L Sodium (135-145) mmol/L Potassium (3.5-5.1) mmol/L Chloride (98-107) mmol/L Carbon Dioxide (22-30) mmol/L Anion Gap (5-15) MEQ/L BUN (7-17) mg/dL Creatinine (0.52-1.04) mg/dL Estimated GFR ML/MIN Glucose (74-106) mg/dL Calcium (8.4-10.2) mg/dL Magnesium (1.6-2.3) mg/dL Total Bilirubin (0.2-1.3) mg/dL AST (14-36) U/L ALT (0-35) U/L Alkaline Phosphatase (38-126) U/L Troponin I < 0.012 (0.000-0.033) ng/mL NT-Pro-B Natriuret Pep 62.0 (<300) pg/mL Serum Total Protein (6.3-8.2) g/dL Albumin (3.5-5.0) g/dL Urine Color Yellow (Yellow) Urine Appearance Turbid A (Clear) Urine pH 8.0 (4.6-8.0) Ur Specific [place] 1.010 (1.005-1.030) Urine Protein Negative (Negative) Urine Glucose (UA) Negative (Negative) mg/dL Urine Ketones Negative (Negative) Urine Blood Negative (Negative) Urine Nitrite Negative (Negative) Urine Bilirubin Negative (Negative) Urine Urobilinogen 0.2 (0.2) mg/dL Ur Leukocyte Esterase Negative (Negative) U Hyaline Cast (Auto) NONE SEEN (0-2) /LPF Urine Microscopic RBC 0-2 (0-5) /HPF Urine Microscopic WBC 0-2 (0-5) /HPF Ur Epithelial Cells None Seen (None Seen) /HPF Urine Bacteria None Seen (None Seen) /HPF Urine Culture Reflexed NO (NO) Influenza Type A Ag (NEGATIVE) Influenza Type B Ag (NEGATIVE) RSV (PCR) (NEGATIVE) SARS-CoV-2 (PCR) (NEGATIVE) - Progress Progress: improved Progress Note: 11/15/24 11:14 Comparison: November 18, 2020 Again age-appropriate global atrophy, mild periventricular degenerative microischemia bilaterally, and remote lacunar infarct left external capsule. No acute intracranial hemorrhage, abnormal extra-axial fluid collection, or mass effect. 4th ventricle is midline without hydrocephalus. Bony calvarium intact. Visualized paranasal sinuses and mastoid air cells are clear. Impression: Continued nonacute senile brain with remote lacunar infarct left external capsule. 11/15/24 11:15 Comparison: May 16, 2024 Portable chest again hyperinflated with now minimal bilateral costophrenic angle subsegmental atelectasis/scarring. Remaining heart, lungs, and bony thorax unremarkable. 11/15/24 15:12 Headache is improved patient's troponin is normal D-dimer is within normal limits patient advised to follow-up with cardiology and to return immediately for new or worsening symptoms patient reports her shortness of breath is resolved she has has been in the ED and a headache has been improving CT head shows no acute seen brain with remote lacunar infarcts - Departure Departure Disposition: Home Clinical Impression: Dyspnea Qualifiers: Dyspnea type: unspecified Qualified Code(s): R06.00 - Dyspnea, unspecified Headache Qualifiers: Headache type: unspecified Headache chronicity pattern: unspecified pattern I ntractability: not intractable Qualified Code(s): R51.9 - Headache, unspecified Condition: Stable Critical Care Time: No Referrals: WARREN LOCKHART MD [Primary Care Provider, [facility]] - Follow up/PCP as directed Instructions: Shortness of Breath (Dyspnea) (DC), Headaches in adults
[2024-11-15 09:46] LABS: BASOPHIL % 0.8 % (0.1-1.2); Basophil (Absolute #) 0.06 x10^3/uL (0.01-0.08); Eosinophil (Absolute #) 0.25 x10^3/uL (0.04-0.36); Hematocrit 45.2 % (34.1-44.9); Hemoglobin 14.9 g/dL (11.2-15.7); IMMATURE GRAN # 0.03 x10^3u/L (0.001-0.031); IMMATURE GRAN % 0.4 % (0.001-0.429); Lymphocyte (Absolute #) 2.65 x10^3/uL (1.18-3.74); Mean Corpuscular Hemoglobin 28.8 pg (25.6-32.2); Mean Corpuscular Hgb Concent. 33.0 g/dL (32.2-35.5); Monocyte (Absolute #) 0.63 x10^3/uL (0.24-0.86); NUCLEATED RBC # 0.00 x10^3u/L (0.00-0.012); NUCLEATED RBC % 0.0 % (0.00-0.2); Platelet Count 280 x10^3/uL (182-369); Red Blood Count 5.18 x10^6/uL (3.93-5.22); White Blood Count 8.0 x10^3/uL (3.98-10.04)
[2024-11-15 09:54] LABS: Glucose, Urine Negative (Negative); Protein,Urine Dip Negative (Negative); RBC 0-2 /HPF (0-5); WBC 0-2 /HPF (0-5)
[2024-11-15 10:04] LABS: Calcium 9.7 mg/dL (8.4-10.2); Carbon Dioxide 25.0 mmol/L (22-30); Creatinine 1 0.68 mg/dL (0.52-1.04); EST GLOMERULAR FILTRATION RATE 90.8 ML/MIN; Glucose 122.0 mg/dL (74-106); INR 0.94 (0.8-3.0); PROTIME 10.3 SECONDS (9.4-12.5); PTT 25.4 SECONDS (25.1-36.5); Potassium 3.7 mmol/L (3.5-5.1); SGOT/AST 33.0 U/L (14-36); SGPT/ALT 24.0 U/L (0-35); Total Protein 8.6 g/dL (6.3-8.2)
[2024-11-15 10:15] LABS: NT PRO BNPII 62.0 pg/mL (<300); TROPONIN < 0.012 ng/mL (0.000-0.033)
--- NOTE | 2024-11-15 10:15 | XRAY ---
Indication: Short of breath. Cough. Comparison: May 16, 2024 Portable chest again hyperinflated with now minimal bilateral costophrenic angle subsegmental atelectasis/scarring. Remaining heart, lungs, and bony thorax unremarkable.
[2024-11-15] MEDS ORDERED: Reglan 10 MG/2 ML ONE (10:33)
[2024-11-15] MEDS ORDERED: BENADRYL 50 MG/ML ONE (10:33)
[2024-11-15] MEDS: Reglan 10 MG/2 ML IV ONE (10:34)
[2024-11-15] MEDS: BENADRYL 50 MG/ML IV ONE (10:34)
--- NOTE | 2024-11-15 10:47 | XRAY ---
Indication: Headache. Multiple contiguous axial images obtained through the head without contrast. Comparison: November 18, 2020 Again age-appropriate global atrophy, mild periventricular degenerative microischemia bilaterally, and remote lacunar infarct left external capsule. No acute intracranial hemorrhage, abnormal extra-axial fluid collection, or mass effect. 4th ventricle is midline without hydrocephalus. Bony calvarium intact. Visualized paranasal sinuses and mastoid air cells are clear. Impression: Continued nonacute senile brain with remote lacunar infarct left external capsule.
[2024-11-15 11:03] LABS: INFLUENZA A NEGATIVE (NEGATIVE); INFLUENZA B NEGATIVE (NEGATIVE); RESPIRATORY SYNCTIAL VIRUS NEGATIVE (NEGATIVE); SARS-CoV-2 Xpert Express NEGATIVE (NEGATIVE)
[2024-11-15] MEDS ORDERED: MORPHINE SULFATE 4 MG INJ ONE (12:01)
[2024-11-15] MEDS ORDERED: Zofran 4 MG/2 ML VIAL ONE (12:01)
[2024-11-15] MEDS: MORPHINE SULFATE 4 MG INJ IV ONE (12:03)
[2024-11-15] MEDS: Zofran 4 MG/2 ML VIAL IV ONE (12:03)
[2024-11-15 14:13] VITALS: RESP 22
[2024-11-15 15:39] VITALS: BP 137/64; PULSE 76
[2024-11-15 18:04] VITALS: O2SAT 98
== END 2024-11-15 15:55 | disposition home or self-care (01) ==
LOC: ED 09:07
DX: R06.00 Dyspnea, unspecified (principal); R51.9 Headache, unspecified; R05.9 Cough, unspecified; I10 Essential (primary) hypertension; Z79.899 Other long term (current) drug therapy